=== PATIENT | female | born 1950 | race Two or more races ===

== ENCOUNTER 2017-04-21 08:45 | Day surgery (SDC) | payer MEDICARE ==
[2017-04-21] MEDS ORDERED: Lactated Ringer's 1,000 ML IV ONE (09:17)
[2017-04-21] MEDS ORDERED: Propofol 10 mg/ml Inj (20 ML) ONE (10:17)
[2017-04-21 10:44] VITALS: TEMP 97
[2017-04-21 11:10] VITALS: BP 128/53; PULSE 73; RESP 20; O2SAT 100
== END 2017-04-21 11:50 | disposition home or self-care (01) ==
LOC: H.ENDO 08:45
PROVIDERS: ATTEND Internal Medicine Gastroenterology
DX: Z12.11 Encounter for screening for malignant neoplasm of colon (principal); E11.9 Type 2 diabetes mellitus without complications; I10 Essential (primary) hypertension
CPT/HCPCS: 45378; 82948; J2704; J7120

== ENCOUNTER 2017-08-25 15:41 | Inpatient (IN) | payer MEDICARE ==
[2017-08-26 20:09] VITALS: BMI 22.6
--- NOTE | 2017-08-26 21:04 | CP.PCM.HP ---
History of Present Illness - History of Present Illness History of Present Illness: PMD: Nino Nieves MD Chief Complaint: Left side weakness The Patient was seen and examined in the rehab Unit HPI: The Hx was obtained from the patient, her daughter and after review of the medical records. The patient was transferred from [facility] to the [facility] for continued management and rehabilitation. She is a 66 years old female with hx of DM, HTN who was admitted to the [facility] on 08/18/17 with left side weakness and dysarthria , diagnosed with Acute CVA. While in hospital there she fell receiving trauma with swelling and bruise to the left periobital region. She was also diagnosed with UTI. At present her speech is clear, still with left side weakness including the face. No headaches, but slight dizziness is present. She passed the swallow evaluation. PMH: DM II; HTN; rectal bleed due to polyps 10years ago. diverticulosis PSH: Cesarian Section X3; Hysterectomy; Appendectomy; Cataract Surgery bilateral SH: Never smoked; No illegal drug use; No alcohol; retired; live with family FH: Father ; mother ; 1 son and 2 daughters healthy Allergies: NKDA Medications: Reviewed Present on Admission - Present on Admission Any Indicators Present on Admission: Yes History of DVT/PE: No History of Uncontrolled Diabetes: Yes Urinary Catheter: No Decubitus Ulcer Present: No Review of Systems - Constitutional Constitutional: absent: Chills, Fatigue, Fever, Headache - EENT Eyes: Requires Corrective Lenses. absent: Diplopia, Photophobia, Sees Flashes Ears: absent: Decreased Hearing, Tinnitus Nose/Mouth/Throat: absent: Epistaxis, Nasal Congestion, Nasal Discharge - Cardiovascular Cardiovascular: absent: Chest Pain, Dyspnea, Edema - Respiratory Respiratory: absent: Cough, Dyspnea, Wheezing, Stridor - Gastrointestinal Gastrointestinal: absent: Abdominal Pain, Constipation, Diarrhea, Nausea, Vomiting - Genitourinary Genitourinary: Urinary Frequency. absent: Dysuria, Flank Pain, Hematuria - Musculoskeletal Musculoskeletal: Arthralgias, Muscle Weakness - Integumentary Integumentary: Swelling. absent: Pruritus, Rash, Skin Ulcer, Sores, Striae - Neurological Neurological: Dizziness, Focal Weakness, Weakness. absent: Confusion, Headaches , Loss of Vision Additional comments: Left side weakness - Psychiatric Psychiatric: absent: Anxiety, Depression, Panic Attacks - Endocrine Endocrine: absent: Palpitations, Polydipsia, Polyphagia, Polyuria - Hematologic/Lymphatic Hematologic: absent: Easy Bleeding, Easy Bruising Past Patient History - Past Medical History & Family History Past Medical History?: Yes - Past Social History Smoking Status: Never Smoked Chewing Tobacco Use: No Cigar Use: No Alcohol: None Drugs: Denies Home Situation {Lives}: With Family - CARDIAC Hx Cardiac Disorders: Yes Hx Hypertension: Yes - PULMONARY Hx Respiratory Disorders: No - NEUROLOGICAL Hx Neurological Disorder: No - HEENT Hx HEENT Problems: No - RENAL Hx Chronic Kidney Disease: No - ENDOCRINE/METABOLIC Hx Endocrine Disorders: Yes Hx Diabetes Mellitus Type 2: Yes - HEMATOLOGICAL/ONCOLOGICAL Hx Blood Disorders: No - INTEGUMENTARY Hx Dermatological Problems: No - MUSCULOSKELETAL/RHEUMATOLOGICAL Hx Musculoskeletal Disorders: No - GASTROINTESTINAL Hx Gastrointestinal Disorders: No Other/Comment: Diverticulosis - GENITOURINARY/GYNECOLOGICAL Hx Genitourinary Disorders: No - PSYCHIATRIC Hx Psychophysiologic Disorder: No Hx Emotional Abuse: No Hx Physical Abuse: No - SURGICAL HISTORY Hx Surgeries: Yes Hx Appendectomy: Yes Hx Cataract Extraction: Yes Hx Section: Yes (X3) Hx Hysterectomy: Yes - ANESTHESIA Hx Anesthesia: Yes Hx Anesthesia Reactions: No Hx Malignant Hyperthermia: No Meds Allergies/Adverse Reactions: Allergies Allergy/AdvReac Type Severity Reaction Status Date / Time No Known Allergies Allergy Verified 08/26/17 20:09 Physical Exam - Constitutional Appears: No Acute Distress - Head Exam Head Exam: NORMOCEPHALIC Additional comments: Swelling at the left periorbital region. - Eye Exam Eye Exam: EOMI Pupil Exam: NORMAL ACCOMODATION, PERRL - ENT Exam ENT Exam: Mucous Membranes Moist, Normal Exam, Normal External Ear Exam - Neck Exam Neck exam: Positive for: Full Rom, Normal Inspection. Negative for: Tenderness - Respiratory Exam Respiratory Exam: Clear to Auscultation Bilateral. absent: Rales, Rhonchi, Wheezes - Cardiovascular Exam Cardiovascular Exam: REGULAR RHYTHM, RRR, +S1, +S2. absent: Gallop, JVD - GI/Abdominal Exam GI & Abdominal Exam: Normal Bowel Sounds, Soft. absent: Mass, Organomegaly, Tenderness - Rectal Exam Rectal Exam: Deferred - Extremities Exam Extremities exam: Positive for: normal inspection. Negative for: calf tenderness, pedal edema, tenderness Additional comments: No movement at the left upper upper extremity. The left knee moves slightly. - Back Exam Back exam: CVA tenderness (L). absent: CVA tenderness (R), NORMAL INSPECTION - Neurological Exam Additional comments: Awake, alert. oriented X3, left facial droop, tongue deviated to the left, left upper extremity with motor strength 0/5 at th eankle and 1/5 at th eleft kneeand left lower extremities with motor strength 0/5 - Psychiatric Exam Psychiatric exam: Normal Affect, Normal Mood - Skin Skin Exam: Dry, Intact, Normal Color, Warm Assessment & Plan - Assessment and Plan (Free Text) Assessment: #. Acute CVA #. DM II #. UTI #. HTN Plan: The patient was transferred from [facility] to the [facility] for continued management and rehabilitation. She is a 66 years old female with hx of DM, HTN who was admitted to the [facility] on 08/18/17 with left side weakness and dysarthria , diagnosed with Acute CVA. While in hospital there she fell receiving trauma with swelling and bruise to the left periobital region. She was also diagnosed with UTI. #. Acute CVA - consult Physiatry Dr Couch - SAGAR - Lipitor - OT/PT - Follow CBC and platelets #. DM II with Hyperglycemia - Lispro Insulin sliding scale according to accucheck ACHS - Levemir - HbA1C 7.7 on 08/18/17 at [facility] - Follow Electrolytes and renal labs #. UTI - Levaquin 500mg daily for 2 days more #. HTN - Losartan - Norvasc #. Left eye bruises - Antibiotic ointment( Neomycin/Polymyxin/dexamethasone) TID #. DVT Prophylaxis with Lovenox - Date & Time Date: 08/26/17 Time: 21:04
[2017-08-26] MEDS: Insulin Detemir 100 Units/ml Inj SC SCH (23:29)
[2017-08-26] MEDS: Insulin Lispro (humaLOG) 100 Units/ml Inj SC SCH (23:31)
[2017-08-27] MEDS: Insulin Lispro (humaLOG) 100 Units/ml Inj SC SCH ×4 (07:43→21:21)
[2017-08-27 07:50] LABS: BASO # 0.1 K/uL (0.0-0.2); BASO % 0.6 % (0.0-2.0); EOS # 0.6 K/uL (0.0-0.7); EOS % 6.4 % (0.0-4.0); HEMOGLOBIN 12.4 g/dL (12.0-16.0); LYMPH % 30.9 % (20.0-40.0); MEAN CELL VOLUME 80.4 fl (81.0-99.0); MEAN CORPUSCULAR HEMOGLOBIN 27.4 pg (27.0-31.0); MEAN CORPUSCULAR HGB CONC 34.1 g/dL (33.0-37.0); MEAN PLATELET VOLUME 7.4 fl (7.2-11.7); MONO # 1.3 K/uL (0.0-0.8); MONO % 13.9 % (0.0-10.0); NEUT # 4.6 K/uL (1.8-7.0); NEUT % 48.2 % (50.0-75.0); NRBC % 0.1 % (0.0-0.0); RBC 4.52 Mil/uL (3.80-5.20); RED CELL DISTRIBUTION WIDTH 12.5 % (11.5-14.5); WHITE BLOOD COUNT 9.6 K/uL (4.8-10.8)
[2017-08-27 08:10] LABS: ALB/GLOB RATIO 1.1 (1.0-2.1); ALT/SGPT 70 U/L (9-52); AST/SGOT 41 U/L (14-36); BLOOD UREA NITROGEN 16 mg/dl (7-17); CALCIUM 9.4 mg/dL (8.4-10.2); GFR AFRICAN-AMERICAN > 60; GFR NON-AFRICAN AMERICAN > 60
[2017-08-27] MEDS: levoFLOXacin 500 MG TAB PO SCH (08:13)
[2017-08-27 08:15] LABS: PARTIAL THROMBOPLASTIN TIME 31.6 Seconds (25.6-37.1); PROTHROMBIN TIME 11.5 Seconds (9.8-13.1)
[2017-08-27] MEDS: Enoxaparin 40 mg Syringe SC SCH (12:22)
--- NOTE | 2017-08-27 16:39 | CP.PCM.CON ---
History of Present Illness - History of Present Illness History of Present Illness: Dr Ocampo PMR coverage for Dr Couch on Maryann Kim, born 1950 who has been admitted to [facility] for acute inpatient rehabilitation following a right CVA wtih left HP. Review of Systems - Constitutional Constitutional: absent: Anorexia, Chills - EENT Eyes: absent: Blurred Vision Ears: absent: Decreased Hearing Nose/Mouth/Throat: absent: Nasal Congestion - Cardiovascular Cardiovascular: absent: Chest Pain - Respiratory Respiratory: absent: Dyspnea - Gastrointestinal Gastrointestinal: absent: Abdominal Pain, Constipation - Integumentary Integumentary: Swelling (left eye from injury). absent: Bleeding Lesions - Neurological Neurological: absent: Abnormal Movements - Psychiatric Psychiatric: absent: Anxiety Past Patient History - Past Medical History & Family History Past Medical History?: Yes - Past Social History Smoking Status: Never Smoked Alcohol: None Drugs: Denies Home Situation {Lives}: With Family (few steps) - CARDIAC Hx Cardiac Disorders: Yes Hx Hypertension: Yes - PULMONARY Hx Respiratory Disorders: No - NEUROLOGICAL Hx Neurological Disorder: No - HEENT Hx HEENT Problems: No - RENAL Hx Chronic Kidney Disease: No - ENDOCRINE/METABOLIC Hx Endocrine Disorders: Yes Hx Diabetes Mellitus Type 2: Yes - HEMATOLOGICAL/ONCOLOGICAL Hx Blood Disorders: No - INTEGUMENTARY Hx Dermatological Problems: No - MUSCULOSKELETAL/RHEUMATOLOGICAL Hx Falls: Yes - GASTROINTESTINAL Hx Gastrointestinal Disorders: No Other/Comment: Diverticulosis - GENITOURINARY/GYNECOLOGICAL Hx Genitourinary Disorders: No - PSYCHIATRIC Hx Substance Use: No - SURGICAL HISTORY Hx Surgeries: Yes Hx Appendectomy: Yes Hx Cataract Extraction: Yes Hx Section: Yes (X3) Hx Hysterectomy: Yes - ANESTHESIA Hx Anesthesia: Yes Hx Anesthesia Reactions: No Hx Malignant Hyperthermia: No Meds Allergies/Adverse Reactions: Allergies Allergy/AdvReac Type Severity Reaction Status Date / Time No Known Allergies Allergy Verified 08/26/17 20:09 - Medications Medications: Current Medications Amlodipine Besylate (Norvasc) 10 mg PO DAILY [facility] Last Admin: 08/27/17 08:12 Dose: 10 mg Aspirin (Ecotrin) 81 mg PO DAILY [facility] Last Admin: 08/27/17 08:13 Dose: 81 mg Atorvastatin Calcium (Lipitor) 80 mg PO HS [facility] Last Admin: 08/26/17 23:29 Dose: 80 mg Enoxaparin Sodium (Lovenox) 40 mg SC DAILY [facility] PRN Reason: Protocol Last Admin: 08/27/17 12:22 Dose: 40 mg Famotidine (Pepcid) 20 mg PO DAILY [facility] Insulin Detemir (Levemir) 8 units SC HS [facility] Last Admin: 08/26/17 23:29 Dose: 8 units Insulin Human Lispro (Humalog) 0 units SC ACHS [facility] PRN Reason: Protocol Last Admin: 08/27/17 12:19 Dose: 4 units Levofloxacin (Levaquin) 500 mg PO DAILY [facility] PRN Reason: Protocol Stop: 08/29/17 09:01 Last Admin: 08/27/17 08:13 Dose: 500 mg Losartan Potassium (Cozaar) 50 mg PO DAILY [facility] Last Admin: 08/27/17 08:14 Dose: 50 mg Neomycin/Polymyxin/Dexamethasone (Maxitrol Opth Oint) 1 applic OU TID [facility] Last Admin: 08/27/17 12:22 Dose: 1 applic Physical Exam - Head Exam Head Exam: absent: ATRAUMATIC (left brow injury with swelling and ecchymosis) - Respiratory Exam Respiratory Exam: NORMAL BREATHING PATTERN - Cardiovascular Exam Cardiovascular Exam: REGULAR RHYTHM - GI/Abdominal Exam GI & Abdominal Exam: absent: Distended - Extremities Exam Extremities exam: Negative for: calf tenderness - Neurological Exam Neurological exam: Alert, CN II-XII Intact, Oriented x3 - Psychiatric Exam Psychiatric exam: Normal Affect, Normal Mood Results - Vital Signs Recent Vital Signs: Last Vital Signs Temp 97.2 F L 08/27/17 08:59 Pulse 73 08/27/17 08:59 Resp 19 08/27/17 08:59 BP 143/60 08/27/17 08:59 Pulse Ox 95 08/27/17 08:59 - Labs Result Diagrams: 08/27/17 05:30 08/27/17 05:30 Labs: Laboratory Results - last 24 hr 08/26/17 08/27/17 08/27/17 22:23 05:29 05:30 WBC 9.6 RBC 4.52 Hgb 12.4 Hct 36.3 MCV 80.4 L MCH 27.4 MCHC 34.1 RDW 12.5 Plt Count 359 MPV 7.4 Neut % (Auto) 48.2 L Lymph % (Auto) 30.9 [facility] % (Auto) 13.9 H Eos % (Auto) 6.4 H Baso % (Auto) 0.6 Neut # (Auto) 4.6 Lymph # (Auto) 3.0 [facility] # (Auto) 1.3 H Eos # (Auto) 0.6 Baso # (Auto) 0.1 PT INR APTT Sodium Potassium Chloride Carbon Dioxide Anion Gap BUN Creatinine Est GFR ( Amer) Est GFR (Non-Af Amer) POC Glucose (mg/dL) 214 H 176 H Random Glucose Calcium Total Bilirubin AST ALT Alkaline Phosphatase Total Protein Albumin Globulin Albumin/Globulin Ratio 08/27/17 08/27/17 08/27/17 05:30 05:30 12:08 WBC RBC Hgb Hct MCV MCH MCHC RDW Plt Count MPV Neut % (Auto) Lymph % (Auto) [facility] % (Auto) Eos % (Auto) Baso % (Auto) Neut # (Auto) Lymph # (Auto) [facility] # (Auto) Eos # (Auto) Baso # (Auto) PT 11.5 INR 1.0 APTT 31.6 Sodium 141 Potassium 3.8 Chloride 99 Carbon Dioxide 28 Anion Gap 18 BUN 16 Creatinine 0.5 L Est GFR ( Amer) > 60 Est GFR (Non-Af Amer) > 60 POC Glucose (mg/dL) 253 H Random Glucose 209 H Calcium 9.4 Total Bilirubin 0.9 AST 41 H ALT 70 H Alkaline Phosphatase 88 Total Protein 7.6 Albumin 4.0 Globulin 3.6 Albumin/Globulin Ratio 1.1 Assessment & Plan - Assessment and Plan (Free Text) Assessment: 66 right HD dominant female with right CVA left HP MCA distribution with 2/5 proximal and trace wrist movement no finger movement at this time PT/OT to continue to help increase functional independence Team conference for d/c planning Pain: controlled Vascular: no evidence of DVT GI: No evidence of constipation or diarrhea Patient is an excellent acute rehabilitation candidate and will have focused PT , OT and recreational therapy to help facilitate a safe and appropriate d/c plan impairment code 01.1
--- NOTE | 2017-08-27 17:30 | PCM.OPOC ---
Physiatry Overall Plan of Care - Overall Plan of Care Estimated Length of Stay in Weeks: 3 Rehab Impairment: Mobility, Gait, Balance, Coordination Etiologic Diagnosis: Cerebrovascular Accident Rehab/Medical Prognosis: Fair - Anticipated Interventions Physical Therapy:: Yes Occupational Therapy:: Yes Speech Therapy:: No Recreational Therapy:: Yes - Therapy Goals Bed Mobility: Contact Guard Ambulation: Contact Guard Functional Positional Changes:: Contact Guard - Discharge Plan Discharge Destination: Subacute
[2017-08-27] MEDS: Insulin Detemir 100 Units/ml Inj SC SCH (21:20)
[2017-08-28] MEDS: Insulin Lispro (humaLOG) 100 Units/ml Inj SC SCH ×4 (06:55→21:09)
[2017-08-28] MEDS: Enoxaparin 40 mg Syringe SC SCH (08:17)
[2017-08-28] MEDS: levoFLOXacin 500 MG TAB PO SCH (08:17)
[2017-08-28] MEDS: Insulin Detemir 100 Units/ml Inj SC SCH (21:08)
[2017-08-29] MEDS: Insulin Lispro (humaLOG) 100 Units/ml Inj SC SCH ×4 (07:28→21:15)
[2017-08-29] MEDS: Enoxaparin 40 mg Syringe SC SCH (08:20)
[2017-08-29] MEDS: levoFLOXacin 500 MG TAB PO SCH (08:23)
--- NOTE | 2017-08-29 11:09 | CP.PCM.PN ---
Subjective - Date & Time of Evaluation Date of Evaluation: 08/29/17 Time of Evaluation: 11:15 - Subjective Subjective: Patient seen and examined. Claimed she is doing better with therapy. No complaint. Objective - Vital Signs/Intake and Output Vital Signs (last 24 hours): Temp Pulse Resp BP Pulse Ox 97.7 F 87 20 128/61 96 08/29/17 07:44 08/29/17 08:40 08/29/17 07:44 08/29/17 08:40 08/29/17 07:44 - Medications Medications: Current Medications Amlodipine Besylate (Norvasc) 10 mg PO DAILY [facility] Last Admin: 08/29/17 08:23 Dose: 10 mg Aspirin (Ecotrin) 81 mg PO DAILY [facility] Last Admin: 08/29/17 08:19 Dose: 81 mg Atorvastatin Calcium (Lipitor) 80 mg PO HS [facility] Last Admin: 08/28/17 21:08 Dose: 80 mg Enoxaparin Sodium (Lovenox) 40 mg SC DAILY [facility] PRN Reason: Protocol Last Admin: 08/29/17 08:20 Dose: 40 mg Famotidine (Pepcid) 20 mg PO DAILY [facility] Last Admin: 08/29/17 08:21 Dose: 20 mg Insulin Detemir (Levemir) 8 units SC HS [facility] Last Admin: 08/28/17 21:08 Dose: 8 units Insulin Human Lispro (Humalog) 0 units SC [facility] PRN Reason: Protocol Last Admin: 08/29/17 07:28 Dose: 3 units Losartan Potassium (Cozaar) 50 mg PO DAILY [facility] Last Admin: 08/29/17 08:21 Dose: 50 mg Neomycin/Polymyxin/Dexamethasone (Maxitrol Opth Oint) 1 applic OU TID [facility] Last Admin: 08/29/17 08:19 Dose: 1 applic - Labs Labs: 08/27/17 05:30 08/27/17 05:30 PT 11.5 Seconds (9.8-13.1) 08/27/17 05:30 INR 1.0 (0.9-1.2) 08/27/17 05:30 APTT 31.6 Seconds (25.6-37.1) 08/27/17 05:30 - Constitutional Appears: No Acute Distress - Eye Exam Eye Exam: PERRL. absent: Normal appearance (left supraorbital swelling 2x2x2 cm ) - ENT Exam ENT Exam: Mucous Membranes Moist - Neck Exam Neck Exam: absent: Meningismus - Respiratory Exam Respiratory Exam: absent: Rales, Rhonchi, Wheezes, Respiratory Distress - Cardiovascular Exam Cardiovascular Exam: REGULAR RHYTHM, +S1, +S2 - GI/Abdominal Exam GI & Abdominal Exam: Soft. absent: Tenderness - Rectal Exam Rectal Exam: Deferred - Neurological Exam Neurological Exam: Alert, Oriented x3 - Psychiatric Exam Psychiatric exam: Normal Affect - Skin Skin Exam: Dry, Intact Assessment and Plan - Assessment and Plan (Free Text) Assessment: 66 yo female with history of DM2 and HTN was [place] [facility] [place] because of left sided weakness and dysarthria associated with acute CVA. While in there patient fell in the bathroom sustaining left supraorbital contussion- hematoma. She was also found to have UTI. On 08/26/17 she was transferred to [facility] and admitted in Acute Rehab for further therapy. 1. Acute CVA continue PT/OT on ASA and statin physiatry consult with Dr Couch 2. DM2 BS uncontrolled HgA1C: 7.7 on 08/18/17 in [facility] accuchek ACHS with low Lispro coverage Levemir 8 units SC HS 3. UTI resolved 4. HTN BP stable continue Losartan and Norvasc 5. Contussion-Hematoma, Left Supraorbital swelling subsiding 6. DVT prophylaxis on Lovenox
--- NOTE | 2017-08-29 15:45 | CP.PCM.CON ---
History of Present Illness - History of Present Illness History of Present Illness: pt is 66ys old female no previous psychiatric diagnosis or treatment, The [place] [facility] [place] [facility] for continued management and rehabilitation. She zo hx of DM, HTN who was admitted to the [facility] on 08/18/17 with left side weakness and dysarthria , diagnosed with Acute CVA. pt noted by staff to present with depressed mood, edginess and irritability, on evaluation pt reported feeling sad and angry due to her current medical condition, denied changes in sleep or appetite denied feeling hopeless or helpless denied suicidal ideation denid perceptual disturbances Past Patient History - Past Medical History & Family History Past Medical History?: Yes - Past Social History Smoking Status: Never Smoked Alcohol: None Drugs: Denies Home Situation {Lives}: With Family (few steps) - CARDIAC Hx Hypertension: Yes - PULMONARY Hx Respiratory Disorders: No - NEUROLOGICAL Hx Neurological Disorder: No - HEENT Hx HEENT Problems: No - RENAL Hx Chronic Kidney Disease: No - ENDOCRINE/METABOLIC Hx Diabetes Mellitus Type 2: Yes - HEMATOLOGICAL/ONCOLOGICAL Hx Blood Disorders: No - INTEGUMENTARY Hx Dermatological Problems: No - MUSCULOSKELETAL/RHEUMATOLOGICAL Hx Falls: Yes - GASTROINTESTINAL Hx Gastrointestinal Disorders: No Other/Comment: Diverticulosis - GENITOURINARY/GYNECOLOGICAL Hx Genitourinary Disorders: No - PSYCHIATRIC Hx Substance Use: No - SURGICAL HISTORY Hx Surgeries: Yes Hx Appendectomy: Yes Hx Cataract Extraction: Yes Hx Section: Yes (X3) Hx Hysterectomy: Yes - ANESTHESIA Hx Anesthesia: Yes Hx Anesthesia Reactions: No Hx Malignant Hyperthermia: No Meds Allergies/Adverse Reactions: Allergies Allergy/AdvReac Type Severity Reaction Status Date / Time No Known Allergies Allergy Verified 08/26/17 20:09 - Medications Medications: Current Medications Amlodipine Besylate (Norvasc) 10 mg PO DAILY [facility] Last Admin: 08/29/17 08:23 Dose: 10 mg Aspirin (Ecotrin) 81 mg PO DAILY [facility] Last Admin: 08/29/17 08:19 Dose: 81 mg Atorvastatin Calcium (Lipitor) 80 mg PO HS [facility] Last Admin: 08/28/17 21:08 Dose: 80 mg Enoxaparin Sodium (Lovenox) 40 mg SC DAILY [facility] PRN Reason: Protocol Last Admin: 08/29/17 08:20 Dose: 40 mg Famotidine (Pepcid) 20 mg PO DAILY [facility] Last Admin: 08/29/17 08:21 Dose: 20 mg Insulin Detemir (Levemir) 8 units SC HS [facility] Last Admin: 08/28/17 21:08 Dose: 8 units Insulin Human Lispro (Humalog) 0 units SC ACHS [facility] PRN Reason: Protocol Last Admin: 08/29/17 12:13 Dose: 8 units Losartan Potassium (Cozaar) 50 mg PO DAILY [facility] Last Admin: 08/29/17 08:21 Dose: 50 mg Ondansetron HCl (Zofran Odt) 4 mg PO Q8H PRN PRN Reason: Nausea/Vomiting Physical Exam - Psychiatric Exam Additional comments: pt seen in bed, calm cooperstive good eye contact mood sad constricted affect, speech normal thought form coherent , alert awake oriented to person and place denied any current suicidal or homicidal ideation denied perceptual disturbances Results - Vital Signs Recent Vital Signs: Last Vital Signs Temp 97.7 F 08/29/17 07:44 Pulse 87 08/29/17 08:40 Resp 20 08/29/17 07:44 BP 128/61 08/29/17 08:40 Pulse Ox 96 08/29/17 07:44 - Labs Result Diagrams: 08/27/17 05:30 08/27/17 05:30 Labs: Laboratory Results - last 24 hr 08/28/17 08/28/17 08/29/17 16:08 20:27 06:32 POC Glucose (mg/dL) 206 H 276 H 246 H Assessment & Plan - Assessment and Plan (Free Text) 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
--- NOTE | 2017-08-29 19:11 | CP.PCM.PN ---
Subjective - Date & Time of Evaluation Date of Evaluation: 08/29/17 Time of Evaluation: 19:10 - Subjective Subjective: Patient seen in room present doing ok left eye ecchymosis and bump continue current care Objective - Vital Signs/Intake and Output Vital Signs (last 24 hours): Temp Pulse Resp BP Pulse Ox 97.7 F 87 20 128/61 96 08/29/17 07:44 08/29/17 08:40 08/29/17 07:44 08/29/17 08:40 08/29/17 07:44 - Medications Medications: Current Medications Amlodipine Besylate (Norvasc) 10 mg PO DAILY [facility] Last Admin: 08/29/17 08:23 Dose: 10 mg Aspirin (Ecotrin) 81 mg PO DAILY [facility] Last Admin: 08/29/17 08:19 Dose: 81 mg Atorvastatin Calcium (Lipitor) 80 mg PO HS [facility] Last Admin: 08/28/17 21:08 Dose: 80 mg Enoxaparin Sodium (Lovenox) 40 mg SC DAILY [facility] PRN Reason: Protocol Last Admin: 08/29/17 08:20 Dose: 40 mg Famotidine (Pepcid) 20 mg PO DAILY [facility] Last Admin: 08/29/17 08:21 Dose: 20 mg Insulin Detemir (Levemir) 8 units SC HS [facility] Last Admin: 08/28/17 21:08 Dose: 8 units Insulin Human Lispro (Humalog) 0 units SC [facility] PRN Reason: Protocol Last Admin: 08/29/17 17:14 Dose: 8 units Losartan Potassium (Cozaar) 50 mg PO DAILY [facility] Last Admin: 08/29/17 08:21 Dose: 50 mg Ondansetron HCl (Zofran Odt) 4 mg PO Q8H PRN PRN Reason: Nausea/Vomiting Sertraline HCl (Zoloft) 12.5 mg PO DAILY [facility] Trazodone HCl (Desyrel) 25 mg PO HS PRN PRN Reason: Insomnia - Labs Labs: 08/27/17 05:30 08/27/17 05:30 PT 11.5 Seconds (9.8-13.1) 08/27/17 05:30 INR 1.0 (0.9-1.2) 08/27/17 05:30 APTT 31.6 Seconds (25.6-37.1) 08/27/17 05:30
[2017-08-29] MEDS: Insulin Detemir 100 Units/ml Inj SC SCH (21:21)
[2017-08-30 06:31] LABS: HEMOGLOBIN 12.2 g/dL (12.0-16.0); MEAN CELL VOLUME 81.7 fl (81.0-99.0); RBC 4.54 Mil/uL (3.80-5.20); RED CELL DISTRIBUTION WIDTH 12.8 % (11.5-14.5); WHITE BLOOD COUNT 11.4 K/uL (4.8-10.8)
[2017-08-30] MEDS: Insulin Lispro (humaLOG) 100 Units/ml Inj SC SCH ×4 (07:03→22:06)
[2017-08-30 07:10] LABS: BLOOD UREA NITROGEN 24 mg/dl (7-17); CALCIUM 9.3 mg/dL (8.4-10.2); GFR AFRICAN-AMERICAN > 60; GFR NON-AFRICAN AMERICAN > 60
[2017-08-30] MEDS: Enoxaparin 40 mg Syringe SC SCH (09:47)
--- NOTE | 2017-08-30 13:18 | PSY.TMCNF ---
Nursing - Vital Signs Vital Signs (Last 8 hours): Vital Signs 08/30/17 08/30/17 08/30/17 07:45 08:53 09:46 Temperature 98.1 F Pulse Rate 75 76 94 H Respiratory 20 Rate Blood Pressure 129/61 129/61 O2 Sat by Pulse 94 L 96 Oximetry 08/30/17 09:47 Temperature Pulse Rate 94 H Respiratory Rate Blood Pressure 129/61 O2 Sat by Pulse Oximetry - Medications/Other Issues Comment: Pt is at moderate nutrition risk. Goals-. 1: Consume >75% of meals. 2: Maintain wt within 2-3 lbs. of current wt. Follow-up assessment due by 2017. - Bladder Management Bladder Pattern: Normal Voiding Method: Bedpan - Bowel Management Bowel Pattern: Normal - Patient/Family Teaching Comments: N/A - Goals/Time Frame Comments: Pt was seen resting throughout afternoon and attempted to meet with pt at bedside. Pt's Kellie was present in room and reported that pt did not sleep well at night and wanted to rest early. Pt did not open her eyes following command. Discussed with pt's about recreation therapy purpose and benefits. Pt's spouse reported that pt enjoys dancing and was driving [employer]. 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 Will attempt next session when pt is awake and alert to determine leisure interests and orient pt to recreation therapy. Physical Therapy - Bed Mobility Bed Mobility: Maximum Assistance - Transfers Wheelchair to Mat: Maximum Assistance Sit to Stand: Moderate Assistance - Ambulation Level of Assistance: Moderate Assistance, Maximum Assistance Distance (ft.): 25 Assistive Devices: Narrow base quad cane - Stair Negotiation Stairs: Level of Assistance: Not Tested - Standing Balance Static Stand: Minimal Assistance Dynamic Stand: Moderate Assistance - Pain Comment: L eye /headache - Insight/Carryover Insight/Carryover: Good - Patient/Family Education Comment: CVA recovery, safety - Assessment/Plan Assessment: Pt will be oriented to benefits and purpose of participating in recreation therapy sessions throughout stay on unit. Unable to meet with pt 2' fatigue and decrease arousal during attempted visits. Pt would benefit from recreation therapy to improve arousal level, mood state, and leisure awareness level. - Goals Timeframe: 3 weeks Goals: Sit < > supine mod I. SIt < > stand and bed < > chair transfers with supervision. Pt will ambulate 250 ft with [facility] and supervision. Pt will negotiate 1 flight of stairs with one handrail and CGA - Provider Therapist: ethan License Number: [id number] Occupational Therapy - Arousal/Attention/Orientation Patient Orientation: Person, Place, Time, Appropriate to Age, Appropriate to Situation - ADL/IADL Self Feeding: Set-up Help Grooming: Set-up Help Bathing-Upper Extremity: Moderate Assistance Bathing-Lower Extremity: Maximum Assistance Dressing-Upper Extremity: Moderate Assistance Dressing-Lower Extremity: Dependent - Transfers Wheelchair to Bed Transfers: Maximum Assistance Toilet Transfers: Maximum Assistance - Pain Comment: L eye /headache - Insight/Carryover Insight/Carryover: Good - Patient/Family Education Comment: CVA recovery, safety - Assessment/Plan Assessment: Pt will be oriented to benefits and purpose of participating in recreation therapy sessions throughout stay on unit. Unable to meet with pt 2' fatigue and decrease arousal during attempted visits. Pt would benefit from recreation therapy to improve arousal level, mood state, and leisure awareness level. - Goals Timeframe: 3 weeks Goals: Sit < > supine mod I. SIt < > stand and bed < > chair transfers with supervision. Pt will ambulate 250 ft with [facility] and supervision. Pt will negotiate 1 flight of stairs with one handrail and CGA - Provider Therapist: Marine Vega OTR/L Speech Therapy - Plan Assessment: Pt will be oriented to benefits and purpose of participating in recreation therapy sessions throughout stay on unit. Unable to meet with pt 2' fatigue and decrease arousal during attempted visits. Pt would benefit from recreation therapy to improve arousal level, mood state, and leisure awareness level. Recreational Therapy - Socialization Level of Socialization: Initiates/interacts freely with care givers and peer - Assessment Assessment/Plan: Pt will be oriented to benefits and purpose of participating in recreation therapy sessions throughout stay on unit. Unable to meet with pt 2 ' fatigue and decrease arousal during attempted visits. Pt would benefit from recreation therapy to improve arousal level, mood state, and leisure awareness level. Problems Currently Limiting Participation: decrease arousal, decrease mood state , fatigue, decrease leisure awareness level Goals and Time Frame: Pt will be encouraged to participate in 1:1 and group recreation therapy sessions 3-5x week to improve leisure awareness level, mood state, and arousal level. - Provider Therapist: Ene Oliveira, BUILDING RIGGER #[id number] Nutrition - Current Diet Current Diet/ Supplement/ Feedings: Heart healthy, moderate consistent CHO diet with thin liquids. - Appetite Percent Meal Consumed: 75-100% - Comments Comments: N/A - Assessment/Goals/Time Frame Assessment/Goals/Time Frame: Pt is at moderate nutrition risk. Goals-. 1: Consume >75% of meals. 2: Maintain wt within 2-3 lbs. of current wt. Follow- up assessment due by 09/04/2017. - Provider Provider: Yumi Patel MS, RD Case Management - Discharge Plan Discharge Plan: Subacute care Rehabilitation Plan - Treatment Plan Treatment Plan: Physical Therapy, Occupational Therapy, Dietary, Patient/Family Education - Discharge Plan Estimated Date of Discharge: 09/19/17 Discharge to: Subacute
--- NOTE | 2017-08-30 13:43 | CP.PCM.PN ---
Subjective - Date & Time of Evaluation Date of Evaluation: 08/30/17 Time of Evaluation: 13:42 - Subjective Subjective: Patient seen in the room with present denies sob/cp making slow progress will re-assess next week regarding d/c plans it is too soon Objective - Vital Signs/Intake and Output Vital Signs (last 24 hours): Temp Pulse Resp BP Pulse Ox 98.1 F 94 H 20 129/61 96 08/30/17 07:45 08/30/17 09:47 08/30/17 07:45 08/30/17 09:47 08/30/17 08:53 - Medications Medications: Current Medications Amlodipine Besylate (Norvasc) 10 mg PO DAILY [facility] Last Admin: 08/30/17 09:47 Dose: 10 mg Aspirin (Ecotrin) 81 mg PO DAILY [facility] Last Admin: 08/30/17 09:46 Dose: 81 mg Atorvastatin Calcium (Lipitor) 80 mg PO HS [facility] Last Admin: 08/29/17 21:11 Dose: 80 mg Enoxaparin Sodium (Lovenox) 40 mg SC DAILY [facility] PRN Reason: Protocol Last Admin: 08/30/17 09:47 Dose: 40 mg Famotidine (Pepcid) 20 mg PO DAILY [facility] Last Admin: 08/30/17 09:47 Dose: 20 mg Insulin Detemir (Levemir) 8 units SC HS [facility] Last Admin: 08/29/17 21:21 Dose: 8 units Insulin Human Lispro (Humalog) 0 units SC [facility] PRN Reason: Protocol Last Admin: 08/30/17 12:05 Dose: 6 units Losartan Potassium (Cozaar) 50 mg PO DAILY [facility] Last Admin: 08/30/17 09:46 Dose: 50 mg Ondansetron HCl (Zofran Odt) 4 mg PO Q8H PRN PRN Reason: Nausea/Vomiting Sertraline HCl (Zoloft) 12.5 mg PO DAILY [facility] Last Admin: 08/30/17 09:59 Dose: 12.5 mg Trazodone HCl (Desyrel) 25 mg PO HS PRN PRN Reason: Insomnia - Labs Labs: 08/30/17 06:10 08/30/17 06:10 PT 11.5 Seconds (9.8-13.1) 08/27/17 05:30 INR 1.0 (0.9-1.2) 08/27/17 05:30 APTT 31.6 Seconds (25.6-37.1) 08/27/17 05:30
[2017-08-30 17:44] LABS: SQUAMOUS EPITHIAL < 1 /hpf (0-5); URINE BACTERIA RARE (<OCC); URINE BILIRUBIN NEGATIVE (NEGATIVE); URINE BLOOD NEGATIVE (NEGATIVE); URINE CLARITY CLEAR (Clear); URINE COLOR STRAW (YELLOW); URINE GLUCOSE (UA) >=500 mg/dL (Normal); URINE LEUKOCYTE ESTERASE TRACE Leu/uL (Negative); URINE PROTEIN NEGATIVE (NEGATIVE); URINE UROBILINOGEN 0.2-1.0 mg/dL (0.2-1.0)
[2017-08-30] MEDS: Insulin Detemir 100 Units/ml Inj SC SCH (22:09)
[2017-08-31 06:16] LABS: HEMOGLOBIN 11.9 g/dL (12.0-16.0); MEAN CELL VOLUME 80.4 fl (81.0-99.0); MEAN CORPUSCULAR HEMOGLOBIN 27.7 pg (27.0-31.0); MEAN CORPUSCULAR HGB CONC 34.5 g/dL (33.0-37.0); RBC 4.31 Mil/uL (3.80-5.20); WHITE BLOOD COUNT 10.2 K/uL (4.8-10.8)
[2017-08-31] MEDS: Insulin Lispro (humaLOG) 100 Units/ml Inj SC SCH ×4 (06:56→21:00)
[2017-08-31 07:11] LABS: BLOOD UREA NITROGEN 19 mg/dl (7-17); CALCIUM 9.3 mg/dL (8.4-10.2); GFR AFRICAN-AMERICAN > 60; GFR NON-AFRICAN AMERICAN > 60
[2017-08-31] MEDS: Enoxaparin 40 mg Syringe SC SCH (08:47)
--- NOTE | 2017-08-31 14:09 | CP.PCM.PN ---
Subjective - Date & Time of Evaluation Date of Evaluation: 08/31/17 Time of Evaluation: 11:20 - Subjective Subjective: Patient seen and examined. Mild soreness on left supraorbital secondary to injury Objective - Vital Signs/Intake and Output Vital Signs (last 24 hours): Temp Pulse Resp BP Pulse Ox 97.8 F 80 18 129/58 L 98 08/31/17 09:41 08/31/17 09:41 08/31/17 09:41 08/31/17 09:41 08/31/17 09:41 - Medications Medications: Current Medications Amlodipine Besylate (Norvasc) 10 mg PO DAILY [facility] Last Admin: 08/31/17 08:48 Dose: 10 mg Aspirin (Ecotrin) 81 mg PO DAILY [facility] Last Admin: 08/31/17 08:46 Dose: 81 mg Atorvastatin Calcium (Lipitor) 80 mg PO HS [facility] Last Admin: 08/30/17 22:04 Dose: 80 mg Enoxaparin Sodium (Lovenox) 40 mg SC DAILY [facility] PRN Reason: Protocol Last Admin: 08/31/17 08:47 Dose: 40 mg Famotidine (Pepcid) 20 mg PO DAILY [facility] Last Admin: 08/31/17 08:46 Dose: 20 mg Insulin Detemir (Levemir) 8 units SC HS [facility] Last Admin: 08/30/17 22:09 Dose: 8 units Insulin Human Lispro (Humalog) 0 units SC [facility] PRN Reason: Protocol Last Admin: 08/31/17 12:26 Dose: 6 units Losartan Potassium (Cozaar) 50 mg PO DAILY [facility] Last Admin: 08/31/17 08:47 Dose: 50 mg Ondansetron HCl (Zofran Odt) 4 mg PO Q8H PRN PRN Reason: Nausea/Vomiting Sertraline HCl (Zoloft) 12.5 mg PO DAILY [facility] Last Admin: 08/31/17 08:48 Dose: 12.5 mg Trazodone HCl (Desyrel) 25 mg PO HS PRN PRN Reason: Insomnia - Labs Labs: 08/31/17 05:20 08/31/17 05:20 PT 11.5 Seconds (9.8-13.1) 08/27/17 05:30 INR 1.0 (0.9-1.2) 08/27/17 05:30 APTT 31.6 Seconds (25.6-37.1) 08/27/17 05:30 - Constitutional Appears: No Acute Distress - Head Exam Head Exam: absent: ATRAUMATIC (left supraorbital swelling still evident but patient claimed it does not bother her) - Eye Exam Eye Exam: PERRL. absent: Scleral icterus - ENT Exam ENT Exam: Mucous Membranes Moist - Neck Exam Neck Exam: absent: Meningismus - Respiratory Exam Respiratory Exam: absent: Rales, Rhonchi, Wheezes, Respiratory Distress - Cardiovascular Exam Cardiovascular Exam: REGULAR RHYTHM, +S1, +S2 - GI/Abdominal Exam GI & Abdominal Exam: Soft. absent: Tenderness - Rectal Exam Rectal Exam: Deferred - Back Exam Back Exam: NORMAL INSPECTION - Neurological Exam Neurological Exam: Alert, Oriented x3 - Psychiatric Exam Psychiatric exam: Normal Affect - Skin Skin Exam: Dry, Intact Assessment and Plan - Assessment and Plan (Free Text) Assessment: 66 yo female with history of DM2 and HTN was admitted to [facility] on 08/18/17 because of left sided weakness and dysarthria associated with acute CVA. While in there patient fell in the bathroom sustaining left supraorbital contussion- hematoma. She was also found to have UTI. On 08/26/17 she was transferred to [facility] and admitted in Acute Rehab for further therapy. 1. Acute CVA continue PT/OT on ASA and statin physiatry consult with Dr Couch 2. DM2 BS uncontrolled HgA1C: 7.7 on 08/18/17 in [facility] accuchek ACHS with low Lispro coverage Levemir 10 units SC HS 3. UTI resolved 4. HTN BP stable continue Losartan and Norvasc 5. Contussion-Hematoma, Left Supraorbital swelling subsiding but still big 6. DVT prophylaxis on Lovenox
[2017-08-31] MEDS: Insulin Detemir 100 Units/ml Inj SC SCH ×2 (14:15→21:55)
[2017-09-01] MEDS: Insulin Lispro (humaLOG) 100 Units/ml Inj SC SCH ×4 (07:20→21:15)
[2017-09-01] MEDS: Enoxaparin 40 mg Syringe SC SCH (09:02)
[2017-09-01] MEDS: Insulin Detemir 100 Units/ml Inj SC SCH (21:14)
[2017-09-02] MEDS: Insulin Lispro (humaLOG) 100 Units/ml Inj SC SCH ×4 (07:03→21:17)
--- NOTE | 2017-09-02 08:28 | CP.PCM.CON ---
History of Present Illness - History of Present Illness History of Present Illness: Pt is a 66 year old female admitted to [facility] following a CVA. Med hx positive for DM and HTN. See medical record for complete med history and medication list. Social History: pt lives in [place] with her of 40 + years and daughter. Pt has two other children, one in [place] and one in the [facility]. Pt reported positive relationships with family members, chidlren and grandchildren. Ed.Voc: pt raised in the [facility], college educated. 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 Psych history denied, pt denied a history of alc.sub abuse. Pt spoke of seeing a pscyhiatrist per consultation following the CVA. She spoke of dysphoria and increased optimism with gains made. MSE: pt alert, oriented relevant/coherent, no psychosis, affect constricted, mood dysphoric, no si no hi ideation. Dx: Adjustment Dx with Depresson- Strategies reviewed to decrease depression Plan: Continued Sup therapy 8-8:20 Past Patient History - Past Medical History & Family History Past Medical History?: Yes - Past Social History Smoking Status: Never Smoked Alcohol: None Drugs: Denies Home Situation {Lives}: With Family (few steps) - CARDIAC Hx Hypertension: Yes - PULMONARY Hx Respiratory Disorders: No - NEUROLOGICAL Hx Neurological Disorder: No - HEENT Hx HEENT Problems: No - RENAL Hx Chronic Kidney Disease: No - ENDOCRINE/METABOLIC Hx Diabetes Mellitus Type 2: Yes - HEMATOLOGICAL/ONCOLOGICAL Hx Blood Disorders: No - INTEGUMENTARY Hx Dermatological Problems: No - MUSCULOSKELETAL/RHEUMATOLOGICAL Hx Falls: Yes - GASTROINTESTINAL Hx Gastrointestinal Disorders: No Other/Comment: Diverticulosis - GENITOURINARY/GYNECOLOGICAL Hx Genitourinary Disorders: No - PSYCHIATRIC Hx Substance Use: No - SURGICAL HISTORY Hx Surgeries: Yes Hx Appendectomy: Yes Hx Cataract Extraction: Yes Hx Section: Yes (X3) Hx Hysterectomy: Yes - ANESTHESIA Hx Anesthesia: Yes Hx Anesthesia Reactions: No Hx Malignant Hyperthermia: No Meds Allergies/Adverse Reactions: Allergies Allergy/AdvReac Type Severity Reaction Status Date / Time No Known Allergies Allergy Verified 08/26/17 20:09 - Medications Medications: Current Medications Amlodipine Besylate (Norvasc) 10 mg PO DAILY [facility] Last Admin: 09/01/17 09:03 Dose: 10 mg Aspirin (Ecotrin) 81 mg PO DAILY [facility] Last Admin: 09/01/17 09:03 Dose: 81 mg Atorvastatin Calcium (Lipitor) 80 mg PO HS [facility] Last Admin: 09/01/17 21:14 Dose: 80 mg Enoxaparin Sodium (Lovenox) 40 mg SC DAILY [facility] PRN Reason: Protocol Last Admin: 09/01/17 09:02 Dose: 40 mg Famotidine (Pepcid) 20 mg PO DAILY [facility] Last Admin: 09/01/17 09:03 Dose: 20 mg Insulin Detemir (Levemir) 10 units SC HS [facility] Last Admin: 09/01/17 21:14 Dose: 10 units Insulin Human Lispro (Humalog) 0 units SC [facility] PRN Reason: Protocol Last Admin: 09/02/17 07:03 Dose: 3 units Losartan Potassium (Cozaar) 50 mg PO DAILY [facility] Last Admin: 09/01/17 09:04 Dose: 50 mg Ondansetron HCl (Zofran Odt) 4 mg PO Q8H PRN PRN Reason: Nausea/Vomiting Sertraline HCl (Zoloft) 12.5 mg PO DAILY [facility] Last Admin: 09/01/17 09:05 Dose: 12.5 mg Trazodone HCl (Desyrel) 25 mg PO HS PRN PRN Reason: Insomnia Results - Vital Signs Recent Vital Signs: Last Vital Signs Temp 98.8 F 09/01/17 20:05 Pulse 68 09/01/17 20:05 Resp 20 09/01/17 20:05 BP 128/53 L 09/01/17 20:05 Pulse Ox 96 09/01/17 20:05 - Labs Result Diagrams: 08/31/17 05:20 08/31/17 05:20 Labs: Laboratory Results - last 24 hr 09/01/17 09/01/17 09/01/17 11:48 16:32 20:53 POC Glucose (mg/dL) 223 H 236 H 233 H 09/02/17 06:20 POC Glucose (mg/dL) 223 H
[2017-09-02] MEDS: Enoxaparin 40 mg Syringe SC SCH (08:46)
--- NOTE | 2017-09-02 09:58 | CP.PCM.PN ---
Subjective - Date & Time of Evaluation Date of Evaluation: 09/02/17 Time of Evaluation: 09:57 - Subjective Subjective: pt doing well participating in pt no complaints denies cp/sob/pain hd stable nad Objective - Vital Signs/Intake and Output Vital Signs (last 24 hours): Temp Pulse Resp BP Pulse Ox 98.8 F 84 20 129/60 96 09/01/17 20:05 09/02/17 09:33 09/01/17 20:05 09/02/17 08:46 09/01/17 20:05 - Medications Medications: Current Medications Amlodipine Besylate (Norvasc) 10 mg PO DAILY [facility] Last Admin: 09/02/17 08:46 Dose: 10 mg Aspirin (Ecotrin) 81 mg PO DAILY [facility] Last Admin: 09/02/17 08:47 Dose: 81 mg Atorvastatin Calcium (Lipitor) 80 mg PO HS [facility] Last Admin: 09/01/17 21:14 Dose: 80 mg Enoxaparin Sodium (Lovenox) 40 mg SC DAILY [facility] PRN Reason: Protocol Last Admin: 09/02/17 08:46 Dose: 40 mg Famotidine (Pepcid) 20 mg PO DAILY [facility] Last Admin: 09/02/17 08:46 Dose: 20 mg Insulin Detemir (Levemir) 10 units SC HS [facility] Last Admin: 09/01/17 21:14 Dose: 10 units Insulin Human Lispro (Humalog) 0 units SC [facility] PRN Reason: Protocol Last Admin: 09/02/17 07:03 Dose: 3 units Losartan Potassium (Cozaar) 50 mg PO DAILY [facility] Last Admin: 09/02/17 08:45 Dose: 50 mg Ondansetron HCl (Zofran Odt) 4 mg PO Q8H PRN PRN Reason: Nausea/Vomiting Sertraline HCl (Zoloft) 12.5 mg PO DAILY [facility] Last Admin: 09/01/17 09:05 Dose: 12.5 mg Trazodone HCl (Desyrel) 25 mg PO HS PRN PRN Reason: Insomnia - Labs Labs: 08/31/17 05:20 08/31/17 05:20 PT 11.5 Seconds (9.8-13.1) 08/27/17 05:30 INR 1.0 (0.9-1.2) 08/27/17 05:30 APTT 31.6 Seconds (25.6-37.1) 08/27/17 05:30 - Constitutional Appears: Well, No Acute Distress - Head Exam Head Exam: ATRAUMATIC, NORMAL INSPECTION, NORMOCEPHALIC - Eye Exam Eye Exam: EOMI, Normal appearance, PERRL - ENT Exam ENT Exam: Mucous Membranes Moist, Normal Exam - Neck Exam Neck Exam: Normal Inspection. absent: Lymphadenopathy - Respiratory Exam Respiratory Exam: Clear to Ausculation Bilateral, NORMAL BREATHING PATTERN - Cardiovascular Exam Cardiovascular Exam: REGULAR RHYTHM, +S1, +S2. absent: Murmur - GI/Abdominal Exam GI & Abdominal Exam: Soft, Normal Bowel Sounds. absent: Tenderness, Organomegaly - Extremities Exam Extremities Exam: Normal Capillary Refill, Normal Inspection. absent: Joint Swelling, Pedal Edema - Back Exam Back Exam: absent: CVA tenderness (L), CVA tenderness (R) - Neurological Exam Neurological Exam: Alert, Awake - Psychiatric Exam Psychiatric exam: Normal Affect, Normal Mood - Skin Skin Exam: Dry, Warm Assessment and Plan - Assessment and Plan (Free Text) Plan: 66 yo female with history of DM2 and HTN was admitted to [facility] [place] [place] on 08/18/17 because of left sided weakness and dysarthria associated with acute CVA. While in there patient fell in the bathroom sustaining left supraorbital contussion- hematoma. She was also found to have UTI. On 08/26/17 she was transferred to [facility] and admitted in Acute Rehab for further therapy. 1. Acute CVA continue PT/OT on ASA and statin physiatry consult with Dr Couch 2. DM2 BS uncontrolled HgA1C: 7.7 on 08/18/17 in [facility] [place] [place] accuchek ACHS with low Lispro coverage Levemir 10 units SC HS 3. UTI resolved 4. HTN BP stable continue Losartan and Norvasc 5. Contussion-Hematoma, Left Supraorbital swelling subsiding but still big 6. DVT prophylaxis on Lovenox
--- NOTE | 2017-09-02 12:01 | CT ---
PROCEDURE: CT HEAD WITHOUT CONTRAST. HISTORY: persistent severe headache COMPARISON: None available. TECHNIQUE: Axial computed tomography images were obtained through the head/brain without intravenous contrast. Radiation dose: Total exam DLP = 751.3 mGy-cm. This CT exam was performed using one or more of the following dose reduction techniques: Automated exposure control, adjustment of the mA and/or kV according to patient size, and/or use of iterative reconstruction technique. FINDINGS: HEMORRHAGE: No intracranial hemorrhage. BRAIN: No mass effect or edema. Mild atrophy. Mild chronic microvascular ischemic changes. Bilateral basal ganglia lacunar infarctions. VENTRICLES: Unremarkable. No hydrocephalus. CALVARIUM: Unremarkable. PARANASAL SINUSES: Unremarkable as visualized. No significant inflammatory changes. MASTOID AIR CELLS: Unremarkable as visualized. No inflammatory changes. OTHER FINDINGS: Left supraorbital hematoma. IMPRESSION: Left supraorbital hematoma. No acute intracranial pathology or hemorrhage.
[2017-09-02] MEDS: Magnesium Oxide 400 mg Tab UD PO SCH ×2 (12:30→17:07)
--- NOTE | 2017-09-02 14:25 | CP.PCM.PN ---
Subjective - Date & Time of Evaluation Date of Evaluation: 09/02/17 Time of Evaluation: 14:24 - Subjective Subjective: Patient seen in the gym had some left sided leaning and CT done which reportedly did not show any acute abnormalities she is tired able to communicate and I do not see any cognitive change continue current care Objective - Vital Signs/Intake and Output Vital Signs (last 24 hours): Temp Pulse Resp BP Pulse Ox 98.8 F 84 20 129/60 96 09/01/17 20:05 09/02/17 09:33 09/01/17 20:05 09/02/17 08:46 09/01/17 20:05 - Medications Medications: Current Medications Amantadine HCl (Amantadine 100 Mg Cap) 100 mg PO DAILY [facility] Amlodipine Besylate (Norvasc) 10 mg PO DAILY [facility] Last Admin: 09/02/17 08:46 Dose: 10 mg Aspirin (Ecotrin) 81 mg PO DAILY [facility] Last Admin: 09/02/17 08:47 Dose: 81 mg Atorvastatin Calcium (Lipitor) 80 mg PO HS [facility] Last Admin: 09/01/17 21:14 Dose: 80 mg Enoxaparin Sodium (Lovenox) 40 mg SC DAILY [facility] PRN Reason: Protocol Last Admin: 09/02/17 08:46 Dose: 40 mg Famotidine (Pepcid) 20 mg PO DAILY [facility] Last Admin: 09/02/17 08:46 Dose: 20 mg Insulin Detemir (Levemir) 10 units SC HS [facility] Last Admin: 09/01/17 21:14 Dose: 10 units Insulin Human Lispro (Humalog) 0 units SC [facility] PRN Reason: Protocol Last Admin: 09/02/17 11:30 Dose: 8 units Losartan Potassium (Cozaar) 50 mg PO DAILY [facility] Last Admin: 09/02/17 08:45 Dose: 50 mg Magnesium Oxide (Mag-Ox) 400 mg PO BID [facility] Last Admin: 09/02/17 12:30 Dose: 400 mg Ondansetron HCl (Zofran Odt) 4 mg PO Q8H PRN PRN Reason: Nausea/Vomiting Sertraline HCl (Zoloft) 12.5 mg PO DAILY [facility] Last Admin: 09/02/17 10:00 Dose: 12.5 mg Trazodone HCl (Desyrel) 25 mg PO HS PRN PRN Reason: Insomnia - Labs Labs: 08/31/17 05:20 08/31/17 05:20 PT 11.5 Seconds (9.8-13.1) 08/27/17 05:30 INR 1.0 (0.9-1.2) 08/27/17 05:30 APTT 31.6 Seconds (25.6-37.1) 08/27/17 05:30
--- NOTE | 2017-09-02 18:10 | CP.PCM.CON ---
History of Present Illness - History of Present Illness History of Present Illness: Neurology Consultation Note: Mrs. Kim is a 66-year-old woman who is currently admitted to acute rehab [place] [facility] [place] after a right frontal/parietal lobe ischemic stroke. She is currently on Aspirin and Lipitor for secondary stroke prevention. She had fallen at [facility] and has a left supra-orbital hematoma. According to PT, the patient has been having increased leaning to the left since her admission. CT scan of the head did not show any acute findings. Neurology was consulted to assist with the management and care. Review of Systems - Review of Systems All systems: reviewed and no additional remarkable complaints except Past Patient History - Past Medical History & Family History Past Medical History?: Yes - Past Social History Smoking Status: Never Smoked Alcohol: None Drugs: Denies Home Situation {Lives}: With Family (few steps) - CARDIAC Hx Hypertension: Yes - PULMONARY Hx Respiratory Disorders: No - NEUROLOGICAL Hx Neurological Disorder: No - HEENT Hx HEENT Problems: No - RENAL Hx Chronic Kidney Disease: No - ENDOCRINE/METABOLIC Hx Diabetes Mellitus Type 2: Yes - HEMATOLOGICAL/ONCOLOGICAL Hx Blood Disorders: No - INTEGUMENTARY Hx Dermatological Problems: No - MUSCULOSKELETAL/RHEUMATOLOGICAL Hx Falls: Yes - GASTROINTESTINAL Hx Gastrointestinal Disorders: No Other/Comment: Diverticulosis - GENITOURINARY/GYNECOLOGICAL Hx Genitourinary Disorders: No - PSYCHIATRIC Hx Substance Use: No - SURGICAL HISTORY Hx Surgeries: Yes Hx Appendectomy: Yes Hx Cataract Extraction: Yes Hx Section: Yes (X3) Hx Hysterectomy: Yes - ANESTHESIA Hx Anesthesia: Yes Hx Anesthesia Reactions: No Hx Malignant Hyperthermia: No Meds Allergies/Adverse Reactions: Allergies Allergy/AdvReac Type Severity Reaction Status Date / Time No Known Allergies Allergy Verified 08/26/17 20:09 - Medications Medications: Current Medications Amantadine HCl (Amantadine 100 Mg Cap) 100 mg PO DAILY [facility] Last Admin: 09/02/17 12:00 Dose: 100 mg Amlodipine Besylate (Norvasc) 10 mg PO DAILY [facility] Last Admin: 09/02/17 08:46 Dose: 10 mg Aspirin (Ecotrin) 81 mg PO DAILY [facility] Last Admin: 09/02/17 08:47 Dose: 81 mg Atorvastatin Calcium (Lipitor) 80 mg PO HS [facility] Last Admin: 09/01/17 21:14 Dose: 80 mg Enoxaparin Sodium (Lovenox) 40 mg SC DAILY [facility] PRN Reason: Protocol Last Admin: 09/02/17 08:46 Dose: 40 mg Famotidine (Pepcid) 20 mg PO DAILY [facility] Last Admin: 09/02/17 08:46 Dose: 20 mg Insulin Detemir (Levemir) 10 units SC HS [facility] Last Admin: 09/01/17 21:14 Dose: 10 units Insulin Human Lispro (Humalog) 0 units SC ACHS [facility] PRN Reason: Protocol Last Admin: 09/02/17 17:06 Dose: 3 units Losartan Potassium (Cozaar) 50 mg PO DAILY [facility] Last Admin: 09/02/17 08:45 Dose: 50 mg Magnesium Oxide (Mag-Ox) 400 mg PO BID [facility] Last Admin: 09/02/17 17:07 Dose: 400 mg Ondansetron HCl (Zofran Odt) 4 mg PO Q8H PRN PRN Reason: Nausea/Vomiting Sertraline HCl (Zoloft) 12.5 mg PO DAILY [facility] Last Admin: 09/02/17 10:00 Dose: 12.5 mg Trazodone HCl (Desyrel) 25 mg PO HS PRN PRN Reason: Insomnia Physical Exam - Neurological Exam Neurological exam: Alert, CN II-XII Intact, Oriented x3 Additional comments: Left facial droop noted. Reflexes are brisk on the left with upgoing plantar response. Strength is 1/5 in LUE and 2/5 in LLE. She is able to more her hand toward her mouth on the left with support of the elbow. Right side is normal in strength. She has a mild neglect of the left side, but no significant sensory deficits were noted. NIHSS = 9 Results - Vital Signs Recent Vital Signs: Last Vital Signs Temp 98 F 09/02/17 08:00 Pulse 84 09/02/17 09:33 Resp 20 09/02/17 08:00 BP 129/60 09/02/17 08:46 Pulse Ox 98 09/02/17 08:00 - Labs Result Diagrams: 08/31/17 05:20 08/31/17 05:20 Labs: Laboratory Results - last 24 hr 09/01/17 09/02/17 09/02/17 20:53 06:20 12:43 POC Glucose (mg/dL) 233 H 223 H 346 H 09/02/17 16:26 POC Glucose (mg/dL) 233 H Assessment & Plan (1) Ischemic stroke Assessment and Plan: Will continue current management for secondary stroke prevention. Amantadine will be added to assist with functional outcome. If the patient has any chasity due to right frontal infarct, we may consider depakote. Otherwise, neurology will follow. Thank you. Status: Acute Priority: High
[2017-09-02] MEDS: Insulin Detemir 100 Units/ml Inj SC SCH (21:17)
[2017-09-03] MEDS: Insulin Lispro (humaLOG) 100 Units/ml Inj SC SCH ×4 (07:04→21:07)
[2017-09-03] MEDS: Enoxaparin 40 mg Syringe SC SCH (08:00)
[2017-09-03 08:01] LABS: HEMOGLOBIN 12.7 g/dL (12.0-16.0); MEAN CELL VOLUME 80.6 fl (81.0-99.0); MEAN CORPUSCULAR HEMOGLOBIN 28.2 pg (27.0-31.0); RBC 4.48 Mil/uL (3.80-5.20); RED CELL DISTRIBUTION WIDTH 13.1 % (11.5-14.5)
[2017-09-03] MEDS: Magnesium Oxide 400 mg Tab UD PO SCH ×2 (08:02→16:54)
[2017-09-03 08:25] LABS: BLOOD UREA NITROGEN 17 mg/dl (7-17); CALCIUM 9.7 mg/dL (8.4-10.2); GFR AFRICAN-AMERICAN > 60; GFR NON-AFRICAN AMERICAN > 60
[2017-09-03] MEDS: Insulin Detemir 100 Units/ml Inj SC SCH (21:18)
[2017-09-04] MEDS: Insulin Lispro (humaLOG) 100 Units/ml Inj SC SCH ×4 (06:54→21:25)
[2017-09-04] MEDS: Magnesium Oxide 400 mg Tab UD PO SCH ×2 (08:47→16:12)
[2017-09-04] MEDS: Enoxaparin 40 mg Syringe SC SCH (09:03)
[2017-09-04] MEDS: Insulin Detemir 100 Units/ml Inj SC SCH (21:30)
[2017-09-05] MEDS: Insulin Lispro (humaLOG) 100 Units/ml Inj SC SCH ×4 (06:59→21:24)
[2017-09-05] MEDS: Enoxaparin 40 mg Syringe SC SCH (09:02)
[2017-09-05] MEDS: Magnesium Oxide 400 mg Tab UD PO SCH ×2 (09:03→16:36)
--- NOTE | 2017-09-05 10:36 | CP.PCM.PN ---
Subjective - Date & Time of Evaluation Date of Evaluation: 09/05/17 Time of Evaluation: 10:33 - Subjective Subjective: Ms. Kim was seen and examined at the bedside. She is alert, oriented in all spheres. She complains of dull frontal headache where the hematoma is located. She denies any blurred vision, dizziness, lightheadedness. She is able to follow simple commands with the left side weaker than the right. There was no untoward events overnight. Objective - Vital Signs/Intake and Output Vital Signs (last 24 hours): Temp Pulse Resp BP Pulse Ox 97.7 F 71 20 129/60 97 09/04/17 19:55 09/05/17 09:03 09/04/17 19:55 09/05/17 09:03 09/04/17 19:55 - Medications Medications: Current Medications Amantadine HCl (Amantadine 100 Mg Cap) 100 mg PO DAILY [facility] Last Admin: 09/05/17 09:02 Dose: 100 mg Amlodipine Besylate (Norvasc) 10 mg PO DAILY [facility] Last Admin: 09/05/17 09:03 Dose: 10 mg Aspirin (Ecotrin) 81 mg PO DAILY [facility] Last Admin: 09/05/17 09:02 Dose: 81 mg Atorvastatin Calcium (Lipitor) 80 mg PO HS [facility] Last Admin: 09/04/17 21:29 Dose: 80 mg Enoxaparin Sodium (Lovenox) 40 mg SC DAILY [facility] PRN Reason: Protocol Last Admin: 09/05/17 09:02 Dose: 40 mg Famotidine (Pepcid) 20 mg PO DAILY [facility] Last Admin: 09/05/17 09:04 Dose: 20 mg Insulin Detemir (Levemir) 10 units SC [facility] Last Admin: 09/04/17 21:30 Dose: 10 units Insulin Human Lispro (Humalog) 0 units SC [facility] PRN Reason: Protocol Last Admin: 09/05/17 06:59 Dose: 3 units Losartan Potassium (Cozaar) 50 mg PO DAILY [facility] Last Admin: 09/05/17 09:02 Dose: 50 mg Magnesium Oxide (Mag-Ox) 400 mg PO BID [facility] Last Admin: 09/05/17 09:03 Dose: 400 mg Ondansetron HCl (Zofran Odt) 4 mg PO Q8H PRN PRN Reason: Nausea/Vomiting Sertraline HCl (Zoloft) 12.5 mg PO DAILY [facility] Last Admin: 09/05/17 09:04 Dose: 12.5 mg Trazodone HCl (Desyrel) 25 mg PO HS PRN PRN Reason: Insomnia - Labs Labs: 09/03/17 06:40 09/03/17 06:40 PT 11.5 Seconds (9.8-13.1) 08/27/17 05:30 INR 1.0 (0.9-1.2) 08/27/17 05:30 APTT 31.6 Seconds (25.6-37.1) 08/27/17 05:30 - Constitutional Appears: No Acute Distress - Head Exam Head Exam: NORMAL INSPECTION - Eye Exam Pupil Exam: PERRL - Neurological Exam Neurological Exam: Alert, Awake, Oriented x3 Neuro motor strength exam: Left Upper Extremity: 2/1, Right Upper Extremity: 5, Left Lower Extremity: 3, Right Lower Extremity: 5 Additional comments: alert, oriented, follows simple commands. Assessment and Plan (1) Ischemic stroke Assessment & Plan: Case discussed with Dr. Lenz, continue all current medical, physical, occupational, and speech therapies. Recommend hydration, keeping the head of bed elevated at least 30 degrees while in the bed. Status: Acute
--- NOTE | 2017-09-05 11:32 | CP.PCM.PN ---
Subjective - Date & Time of Evaluation Date of Evaluation: 09/05/17 Time of Evaluation: 10:15 - Subjective Subjective: Patient seen and examined. Still complained of soreness on the left supraorbital swelling. Objective - Vital Signs/Intake and Output Vital Signs (last 24 hours): Temp Pulse Resp BP Pulse Ox 97.9 F 71 18 129/60 96 09/05/17 10:00 09/05/17 10:00 09/05/17 10:00 09/05/17 10:00 09/05/17 10:00 - Medications Medications: Current Medications Amantadine HCl (Amantadine 100 Mg Cap) 100 mg PO DAILY [facility] Last Admin: 09/05/17 09:02 Dose: 100 mg Amlodipine Besylate (Norvasc) 10 mg PO DAILY [facility] Last Admin: 09/05/17 09:03 Dose: 10 mg Aspirin (Ecotrin) 81 mg PO DAILY [facility] Last Admin: 09/05/17 09:02 Dose: 81 mg Atorvastatin Calcium (Lipitor) 80 mg PO HS [facility] Last Admin: 09/04/17 21:29 Dose: 80 mg Enoxaparin Sodium (Lovenox) 40 mg SC DAILY [facility] PRN Reason: Protocol Last Admin: 09/05/17 09:02 Dose: 40 mg Famotidine (Pepcid) 20 mg PO DAILY [facility] Last Admin: 09/05/17 09:04 Dose: 20 mg Insulin Detemir (Levemir) 10 units SC HS [facility] Last Admin: 09/04/17 21:30 Dose: 10 units Insulin Human Lispro (Humalog) [address] [facility] PRN Reason: Protocol Last Admin: 09/05/17 06:59 Dose: 3 units Losartan Potassium (Cozaar) 50 mg PO DAILY [facility] Last Admin: 09/05/17 09:02 Dose: 50 mg Magnesium Oxide (Mag-Ox) 400 mg PO BID [facility] Last Admin: 09/05/17 09:03 Dose: 400 mg Ondansetron HCl (Zofran Odt) 4 mg PO Q8H PRN PRN Reason: Nausea/Vomiting Sertraline HCl (Zoloft) 12.5 mg PO DAILY [facility] Last Admin: 09/05/17 09:04 Dose: 12.5 mg Trazodone HCl (Desyrel) 25 mg PO HS PRN PRN Reason: Insomnia - Labs Labs: 09/03/17 06:40 07/07/18 06:40 PT 11.5 Seconds (9.8-13.1) 08/27/17 05:30 INR 1.0 (0.9-1.2) 08/27/17 05:30 APTT 31.6 Seconds (25.6-37.1) 08/27/17 05:30 - Constitutional Appears: No Acute Distress - Head Exam Head Exam: absent: ATRAUMATIC (contussion-hematoma on left supraorbital still markedly swollen) - Eye Exam Eye Exam: PERRL - ENT Exam ENT Exam: Mucous Membranes Moist - Neck Exam Neck Exam: absent: Meningismus - Respiratory Exam Respiratory Exam: absent: Rales, Rhonchi, Wheezes, Respiratory Distress - Cardiovascular Exam Cardiovascular Exam: REGULAR RHYTHM, +S1, +S2 - GI/Abdominal Exam GI & Abdominal Exam: Soft. absent: Tenderness - Rectal Exam Rectal Exam: Deferred - Neurological Exam Neurological Exam: Alert, Oriented x3 - Psychiatric Exam Psychiatric exam: Normal Affect - Skin Skin Exam: Dry, Intact Assessment and Plan - Assessment and Plan (Free Text) Assessment: 66 yo female with history of DM2 and HTN was admitted to [facility] on 08/18/17 because of left sided weakness and dysarthria associated with acute CVA. While in there patient fell in the bathroom sustaining left supraorbital contussion- hematoma. She was also found to have UTI. On 08/26/17 she was transferred to [facility] and admitted in Acute Rehab for further therapy. 1. Acute CVA continue PT/OT on ASA and statin physiatry consult with Dr Couch 2. DM2 BS still uncontrolled HgA1C: 7.7 on 08/18/17 in [facility] [place] accuchek ACHS with low Lispro coverage increase Levemir 12 units SC HS 3. HTN BP stable continue Losartan and Norvasc 4. Contussion-Hematoma, Left Supraorbital swelling still big 5. DVT prophylaxis on Lovenox
--- NOTE | 2017-09-05 16:36 | CP.PCM.PN ---
Subjective - Date & Time of Evaluation Date of Evaluation: 09/05/17 Time of Evaluation: 16:35 - Subjective Subjective: Patient seen in the room with present doing ok ambulating 60' with mod a no dizziness or cp no sob continue current care Objective - Vital Signs/Intake and Output Vital Signs (last 24 hours): Temp Pulse Resp BP Pulse Ox 97.9 F 68 18 131/58 L 96 09/05/17 10:00 09/05/17 15:31 09/05/17 10:30 09/05/17 15:31 09/05/17 10:30 - Medications Medications: Current Medications Amantadine HCl (Amantadine 100 Mg Cap) 100 mg PO DAILY [facility] Last Admin: 09/05/17 09:02 Dose: 100 mg Amlodipine Besylate (Norvasc) 10 mg PO DAILY [facility] Last Admin: 09/05/17 09:03 Dose: 10 mg Aspirin (Ecotrin) 81 mg PO DAILY [facility] Last Admin: 09/05/17 09:02 Dose: 81 mg Atorvastatin Calcium (Lipitor) 80 mg PO HS [facility] Last Admin: 09/04/17 21:29 Dose: 80 mg Enoxaparin Sodium (Lovenox) 40 mg SC DAILY [facility] PRN Reason: Protocol Last Admin: 09/05/17 09:02 Dose: 40 mg Famotidine (Pepcid) 20 mg PO DAILY [facility] Last Admin: 09/05/17 09:04 Dose: 20 mg Insulin Detemir (Levemir) 12 units SC HS [facility] Insulin Human Lispro (Humalog) 0 units SC [facility] PRN Reason: Protocol Last Admin: 09/05/17 16:34 Dose: 3 units Losartan Potassium (Cozaar) 50 mg PO DAILY [facility] Last Admin: 09/05/17 09:02 Dose: 50 mg Magnesium Oxide (Mag-Ox) 400 mg PO BID [facility] Last Admin: 09/05/17 09:03 Dose: 400 mg Ondansetron HCl (Zofran Odt) 4 mg PO Q8H PRN PRN Reason: Nausea/Vomiting Sertraline HCl (Zoloft) 12.5 mg PO DAILY [facility] Last Admin: 09/05/17 09:04 Dose: 12.5 mg Trazodone HCl (Desyrel) 25 mg PO HS PRN PRN Reason: Insomnia - Labs Labs: 09/03/17 06:40 09/03/17 06:40 PT 11.5 Seconds (9.8-13.1) 08/27/17 05:30 INR 1.0 (0.9-1.2) 08/27/17 05:30 APTT 31.6 Seconds (25.6-37.1) 08/27/17 05:30
[2017-09-05] MEDS: Insulin Detemir 100 Units/ml Inj SC SCH (21:24)
[2017-09-06 07:06] LABS: HEMOGLOBIN 12.4 g/dL (12.0-16.0); MEAN CORPUSCULAR HEMOGLOBIN 27.5 pg (27.0-31.0); MEAN CORPUSCULAR HGB CONC 33.9 g/dL (33.0-37.0); RBC 4.53 Mil/uL (3.80-5.20); RED CELL DISTRIBUTION WIDTH 13.4 % (11.5-14.5)
[2017-09-06 07:12] LABS: BLOOD UREA NITROGEN 15 mg/dl (7-17); CALCIUM 9.5 mg/dL (8.4-10.2); GFR AFRICAN-AMERICAN > 60; GFR NON-AFRICAN AMERICAN > 60
[2017-09-06] MEDS: Insulin Lispro (humaLOG) 100 Units/ml Inj SC SCH ×5 (07:13→21:13)
[2017-09-06] MEDS: Enoxaparin 40 mg Syringe SC SCH (08:39)
[2017-09-06] MEDS: Magnesium Oxide 400 mg Tab UD PO SCH ×2 (08:40→17:00)
--- NOTE | 2017-09-06 13:24 | PSY.TMCNF ---
Nursing - Vital Signs Vital Signs (Last 8 hours): Vital Signs 09/06/17 09/06/17 09/06/17 07:40 08:40 08:41 Temperature 97.7 F Pulse Rate 77 77 77 Respiratory 20 Rate Blood Pressure 127/54 L 127/54 L 127/54 L O2 Sat by Pulse 96 Oximetry Pain: 0 - Medications/Other Issues Comment: Pt at moderate nutritional risk. goals: 1: Consume >75% of meals- met , continue. 2: Maintain wt within 2-3 lbs. of current wt- unknown if met, continue. Follow-up due on 09/09/2017 - Bladder Management Bladder Pattern: Normal Voiding Method: Toilet, Bedpan - Bowel Management Bowel Pattern: Normal - Patient/Family Teaching Comments: N/A - Goals/Time Frame Comments: Pt was seen resting throughout afternoon and attempted to meet with pt at bedside. Pt's Kellie was present in room and reported that pt did not sleep well at night and wanted to rest early. Pt did not open her eyes following command. Discussed with pt's about recreation therapy purpose and benefits. Pt's spouse reported that pt enjoys dancing and was driving [employer]. 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 Will attempt next session when pt is awake and alert to determine leisure interests and orient pt to recreation therapy. Physical Therapy - Bed Mobility Bed Mobility: Moderate Assistance - Transfers Wheelchair to Mat: Moderate Assistance Sit to Stand: Minimal Assistance - Ambulation Level of Assistance: Moderate Assistance, Maximum Assistance Distance (ft.): 60 Assistive Devices: Narrow base quad cane Orthoses: LLE BILL wrap for dorsiflexor assist - Stair Negotiation Stairs: Level of Assistance: Not Tested - Standing Balance Static Stand: Moderate Assistance Dynamic Stand: Maximal Assistance - Pain Pain (assessed during therapy session): 0 - Insight/Carryover Insight/Carryover: Fair - Patient/Family Education Comment: CVA recovery, safety, improved insight to deficits - Assessment/Plan Assessment: Pt participating in PT tx sessions focusing on BLE strengthening exercises, balance and endurance activities, and functional mobility training. Pt currently requires mod A for bed mobility, min/ mod A for transfers, and max A for gait with NBQC . Pt appears to lack insight to derficits and is easily distracted /displays imapired carryover during sessions. Therapist provides education throughout session. Pt will continue to benefit from skilled PT interventions to addres deficits, reduce fall risk, and maximize functional independence. - Goals Timeframe: 3 weeks Goals: Sit < > supine with supervision. ALl functional transfers with Supervision. Pt will ambulate 150 ft with NBQC and CGA - Provider Therapist: Althea Mccoy PT DPT License Number: [id number] Occupational Therapy - Arousal/Attention/Orientation Patient Orientation: Person, Place, Time, Appropriate to Age, Appropriate to Situation - ADL/IADL Self Feeding: Set-up Help Grooming: Set-up Help, Minimal Assistance Bathing-Upper Extremity: Verbal Cues, Set-up Help, Moderate Assistance Bathing-Lower Extremity: Verbal Cues, Set-up Help, Maximum Assistance Dressing-Upper Extremity: Verbal Cues, Set-up Help, Moderate Assistance Dressing-Lower Extremity: Verbal Cues, Set-up Help, Maximum Assistance - Sitting Balance Static Sitting: Supervision Dynamic Sitting: Minimal Assistance Comment: seated at edge of bed - Transfers Wheelchair to Bed Transfers: Verbal Cues, Set-up Help, Moderate Assistance Toilet Transfers: Verbal Cues, Set-up Help, Minimal Assistance, Moderate Assistance - Wheelchair Management Level of Assistance: Dependent - Upper Extremity Status Right Upper Extremity Comment: P/AROM is WFLS, strength 4/5 Left Upper Extremity Comment: PROM Is WFLS, but AROM limited with abnormal tone ; strength 2-/5 - Pain Pain (assessed during therapy session): 0 - Insight/Carryover Insight/Carryover: Fair - Patient/Family Education Comment: CVA recovery, safety, improved insight to deficits - Assessment/Plan Assessment: Pt participating in PT tx sessions focusing on BLE strengthening exercises, balance and endurance activities, and functional mobility training. Pt currently requires mod A for bed mobility, min/ mod A for transfers, and max A for gait with NBQC . Pt appears to lack insight to derficits and is easily distracted /displays imapired carryover during sessions. Therapist provides education throughout session. Pt will continue to benefit from skilled PT interventions to addres deficits, reduce fall risk, and maximize functional independence. - Goals Timeframe: 3 weeks Goals: Sit < > supine with supervision. ALl functional transfers with Supervision. Pt will ambulate 150 ft with NBQC and CGA - Provider Therapist: Ny Null, OTR/L Speech Therapy - Plan Assessment: Pt participating in PT tx sessions focusing on BLE strengthening exercises, balance and endurance activities, and functional mobility training. Pt currently requires mod A for bed mobility, min/ mod A for transfers, and max A for gait with NBQC . Pt appears to lack insight to derficits and is easily distracted /displays imapired carryover during sessions. Therapist provides education throughout session. Pt will continue to benefit from skilled PT interventions to addres deficits, reduce fall risk, and maximize functional independence. Recreational Therapy - Participation Participation: Participates in Individual and/or Group Sessions - Attendance Attendance: 3-5 times per week - Activities Leisure Activities: Cards and Games - Socialization Level of Socialization: Initiates/interacts freely with care givers and peer - Assessment Assessment/Plan: Pt participating in PT tx sessions focusing on BLE strengthening exercises, balance and endurance activities, and functional mobility training. Pt currently requires mod A for bed mobility, min/ mod A for transfers, and max A for gait with NBQC . Pt appears to lack insight to derficits and is easily distracted /displays imapired carryover during sessions. Therapist provides education throughout session. Pt will continue to benefit from skilled PT interventions to addres deficits, reduce fall risk, and maximize functional independence. - Provider Therapist: Ene Oliveira, [employer]ICE [employer]ER #[id number] Nutrition - Current Diet Current Diet/ Supplement/ Feedings: Moderate consistent CHO heart healthy diet thin liquids - Appetite Percent Meal Consumed: 50-74% - Comments Comments: N/A - Assessment/Goals/Time Frame Assessment/Goals/Time Frame: Pt at moderate nutritional risk. goals: 1: Consume >75% of meals- met, continue. 2: Maintain wt within 2-3 lbs. of current wt- unknown if met, continue. Follow-up due on 09/09/2017 - Provider Provider: Yari Goodman RD Case Management - Psychosocial Assessment Support Systems: Adams Kim (spouse)- [phone] Psychological Interventions/Needs: Patient is alert and oriented x3 and able to verbalize needs. Patient cooperative and motivated for therapy Discharge Concerns: Patient currently requiring mod-max A for functional mobility Patient/Family Meeting: CM met with patient/spouse and rehab team Intervention/Goal/Outcome:: 1. Plan: Home vs [facility] dependent on progress in therapy over upcoming weeks. 2. Tentative discharge date: 09/19/2017. 3. continued stay auth, LAD: 7/5. 4. caregiver training? 5. DME needs? 6. patient to be reassesed next week for most appropriate discharge plan. - Discharge Plan Discharge Plan: Home with services, Subacute care - Provider Provider: RUPA Durbin, [employer] License Number: [id number] Rehabilitation Plan - Treatment Plan Treatment Plan: Physical Therapy, Occupational Therapy, Dietary, Patient/Family Education - Discharge Plan Discharge to: Home
--- NOTE | 2017-09-06 13:44 | CP.PCM.PN ---
Subjective - Date & Time of Evaluation Date of Evaluation: 09/06/17 Time of Evaluation: 13:43 - Subjective Subjective: Patient seen in the room doing ok lacks focus at times and discussed this with her family present as well goal is d/c home with 24 hour care 09/19/17 Objective - Vital Signs/Intake and Output Vital Signs (last 24 hours): Temp Pulse Resp BP Pulse Ox 97.7 F 77 20 127/54 L 96 09/06/17 07:40 09/06/17 08:41 09/06/17 07:40 09/06/17 08:41 09/06/17 07:40 - Medications Medications: Current Medications Amantadine HCl (Amantadine 100 Mg Cap) 100 mg PO DAILY [facility] Last Admin: 09/06/17 08:39 Dose: 100 mg Amlodipine Besylate (Norvasc) 10 mg PO DAILY [facility] Last Admin: 09/06/17 08:41 Dose: 10 mg Aspirin (Ecotrin) 81 mg PO DAILY [facility] Last Admin: 09/06/17 08:40 Dose: 81 mg Atorvastatin Calcium (Lipitor) 80 mg PO HS [facility] Last Admin: 09/05/17 21:23 Dose: 80 mg Enoxaparin Sodium (Lovenox) 40 mg SC DAILY [facility] PRN Reason: Protocol Last Admin: 09/06/17 08:39 Dose: 40 mg Famotidine (Pepcid) 20 mg PO DAILY [facility] Last Admin: 09/06/17 08:41 Dose: 20 mg Insulin Detemir (Levemir) 12 units SC HS [facility] Last Admin: 09/05/17 21:24 Dose: 12 units Insulin Human Lispro (Humalog) 0 units SC [facility] PRN Reason: Protocol Last Admin: 09/06/17 12:28 Dose: 3 units Losartan Potassium (Cozaar) 50 mg PO DAILY [facility] Last Admin: 09/06/17 08:40 Dose: 50 mg Magnesium Oxide (Mag-Ox) 400 mg PO BID [facility] Last Admin: 09/06/17 08:40 Dose: 400 mg Ondansetron HCl (Zofran Odt) 4 mg PO Q8H PRN PRN Reason: Nausea/Vomiting Sertraline HCl (Zoloft) 12.5 mg PO DAILY [facility] Last Admin: 09/06/17 08:41 Dose: 12.5 mg Trazodone HCl (Desyrel) 25 mg PO HS PRN PRN Reason: Insomnia - Labs Labs: 09/06/17 06:40 09/06/17 06:40 PT 11.5 Seconds (9.8-13.1) 08/27/17 05:30 INR 1.0 (0.9-1.2) 08/27/17 05:30 APTT 31.6 Seconds (25.6-37.1) 08/27/17 05:30
[2017-09-06] MEDS: Insulin Detemir 100 Units/ml Inj SC SCH (21:11)
[2017-09-07] MEDS: Insulin Lispro (humaLOG) 100 Units/ml Inj SC SCH ×4 (07:20→21:05)
[2017-09-07] MEDS: Magnesium Oxide 400 mg Tab UD PO SCH ×2 (08:31→17:01)
[2017-09-07] MEDS: Enoxaparin 40 mg Syringe SC SCH (08:32)
[2017-09-07] MEDS ORDERED: Insulin Detemir 100 Units/ml Inj SC SCH (15:15)
--- NOTE | 2017-09-07 15:22 | CP.PCM.PN ---
Subjective - Date & Time of Evaluation Date of Evaluation: 09/07/17 Time of Evaluation: 14:00 - Subjective Subjective: Patient seen and examined. She is OOB to chair. Complained of some mild soreness at the area of her left supraorbital hematoma. No other complaints. Tolerating physical therapy well. Objective - Vital Signs/Intake and Output Vital Signs (last 24 hours): Temp Pulse Resp BP Pulse Ox 97.9 F 69 21 131/68 97 09/07/17 08:59 09/07/17 08:59 09/07/17 08:59 09/07/17 08:59 09/07/17 08:59 - Medications Medications: Current Medications Amantadine HCl (Amantadine 100 Mg Cap) 100 mg PO DAILY [facility] Last Admin: 09/07/17 08:32 Dose: 100 mg Amlodipine Besylate (Norvasc) 10 mg PO DAILY [facility] Last Admin: 09/07/17 08:33 Dose: 10 mg Aspirin (Ecotrin) 81 mg PO DAILY [facility] Last Admin: 09/07/17 08:32 Dose: 81 mg Atorvastatin Calcium (Lipitor) 80 mg PO [facility] Last Admin: 09/06/17 21:10 Dose: 80 mg Enoxaparin Sodium (Lovenox) 40 mg SC DAILY [facility] PRN Reason: Protocol Last Admin: 09/07/17 08:32 Dose: 40 mg Famotidine (Pepcid) 20 mg PO DAILY [facility] Last Admin: 09/07/17 08:33 Dose: 20 mg Insulin Detemir (Levemir) 12 units SC [facility] Last Admin: 09/06/17 21:11 Dose: 12 units Insulin Human Lispro (Humalog) 0 units SC [facility] PRN Reason: Protocol Last Admin: 09/07/17 12:17 Dose: 3 units Losartan Potassium (Cozaar) 50 mg PO DAILY [facility] Last Admin: 09/07/17 08:32 Dose: 50 mg Magnesium Oxide (Mag-Ox) 400 mg PO BID [facility] Last Admin: 09/07/17 08:31 Dose: 400 mg Ondansetron HCl (Zofran Odt) 4 mg PO Q8H PRN PRN Reason: Nausea/Vomiting Last Admin: 09/06/17 23:30 Dose: 4 mg Sertraline HCl (Zoloft) 12.5 mg PO DAILY [facility] Last Admin: 09/07/17 08:31 Dose: 12.5 mg Trazodone HCl (Desyrel) 25 mg PO HS PRN PRN Reason: Insomnia - Labs Labs: 09/06/17 06:40 09/06/17 06:40 PT 11.5 Seconds (9.8-13.1) 08/27/17 05:30 INR 1.0 (0.9-1.2) 08/27/17 05:30 APTT 31.6 Seconds (25.6-37.1) 08/27/17 05:30 - Additional Findings Additional findings: Physical exam: Constitutional- cooperative, awake, alert Head- Large left supraorbital hematoma, slowly healing. PERRL Eye- PERRL, EOMI ENT- normal exam, MMM. Neck- normal inspection, supple, no JVD Respiratory- CTAB, no wheezes rales rhonchi Cardiovascular- RRR, +S1, +S2 no MRG GI/Abdominal- normal bowel sounds, soft, no mass, no hsm Skin- warm, dry Extremities Exam- normal capillary refill, normal inspection Neurological Exam- alert, awake, oriented Psych- normal mood, normal affect Assessment and Plan - Assessment and Plan (Free Text) Plan: 66 yo female with history of DM2 and HTN was admitted to [facility] on 08/18/17 because of left sided weakness and dysarthria associated with acute CVA. While in there patient fell in the bathroom sustaining left supraorbital contussion- hematoma. She was also found to have UTI. On 08/26/17 she was transferred to [facility] and admitted in Acute Rehab for further therapy. 1. Acute CVA continue PT/OT on ASA and statin physiatry consult with Dr Couch 2. DM2 BS still uncontrolled HgA1C: 7.7 on 08/18/17 in [facility] accuchek ACHS with low Lispro coverage change Levemir to 10 units SC q 12 hours 3. HTN BP stable continue Losartan and Norvasc 4. Contussion-Hematoma, Left Supraorbital slowly healing 5. DVT prophylaxis on Lovenox
--- NOTE | 2017-09-07 18:13 | CP.PCM.PN ---
Subjective - Date & Time of Evaluation Date of Evaluation: 09/07/17 Time of Evaluation: 12:10 - Subjective Subjective: Patient seen in the room no change since yesterday with left eye no other significant pain no sob or fever continue current care Objective - Vital Signs/Intake and Output Vital Signs (last 24 hours): Temp Pulse Resp BP Pulse Ox 97.9 F 69 21 131/68 97 09/07/17 08:59 09/07/17 08:59 09/07/17 08:59 09/07/17 08:59 09/07/17 08:59 - Medications Medications: Current Medications Amantadine HCl (Amantadine 100 Mg Cap) 100 mg PO DAILY [facility] Last Admin: 09/07/17 08:32 Dose: 100 mg Amlodipine Besylate (Norvasc) 10 mg PO DAILY [facility] Last Admin: 09/07/17 08:33 Dose: 10 mg Aspirin (Ecotrin) 81 mg PO DAILY [facility] Last Admin: 09/07/17 08:32 Dose: 81 mg Atorvastatin Calcium (Lipitor) 80 mg PO HS [facility] Last Admin: 09/06/17 21:10 Dose: 80 mg Enoxaparin Sodium (Lovenox) 40 mg SC DAILY [facility] PRN Reason: Protocol Last Admin: 09/07/17 08:32 Dose: 40 mg Famotidine (Pepcid) 20 mg PO DAILY [facility] Last Admin: 09/07/17 08:33 Dose: 20 mg Insulin Detemir (Levemir) 10 units SC Q12 [facility] Insulin Human Lispro (Humalog) 0 units SC ACHS [facility] PRN Reason: Protocol Last Admin: 09/07/17 16:59 Dose: 6 units Losartan Potassium (Cozaar) 50 mg PO DAILY [facility] Last Admin: 09/07/17 08:32 Dose: 50 mg Magnesium Oxide (Mag-Ox) 400 mg PO BID [facility] Last Admin: 09/07/17 17:01 Dose: 400 mg Ondansetron HCl (Zofran Odt) 4 mg PO Q8H PRN PRN Reason: Nausea/Vomiting Last Admin: 09/06/17 23:30 Dose: 4 mg Sertraline HCl (Zoloft) 12.5 mg PO DAILY [facility] Last Admin: 09/07/17 08:31 Dose: 12.5 mg Trazodone HCl (Desyrel) 25 mg PO HS PRN PRN Reason: Insomnia - Labs Labs: 07/10/18 06:40 09/06/17 06:40 PT 11.5 Seconds (9.8-13.1) 08/27/17 05:30 INR 1.0 (0.9-1.2) 08/27/17 05:30 APTT 31.6 Seconds (25.6-37.1) 08/27/17 05:30
[2017-09-07] MEDS: Insulin Detemir 100 Units/ml Inj SC SCH (21:06)
[2017-09-08] MEDS: Insulin Lispro (humaLOG) 100 Units/ml Inj SC SCH ×4 (07:20→21:13)
[2017-09-08] MEDS: Insulin Detemir 100 Units/ml Inj SC SCH ×2 (08:18→21:12)
[2017-09-08] MEDS: Magnesium Oxide 400 mg Tab UD PO SCH ×2 (08:18→16:49)
[2017-09-08] MEDS: Enoxaparin 40 mg Syringe SC SCH (08:19)
--- NOTE | 2017-09-08 09:36 | CP.PCM.PN ---
Subjective - Date & Time of Evaluation Date of Evaluation: 09/08/17 Time of Evaluation: 09:36 - Subjective Subjective: Ms. Kim was seen and examined during therapy session. She is alert, oriented in all spheres. She denies any blurred vision, dizziness, lightheadedness. She is able to follow simple commands with the left side weaker than the right, participates actively during her therapy session.There was no untoward events overnight. Objective - Vital Signs/Intake and Output Vital Signs (last 24 hours): Temp Pulse Resp BP Pulse Ox 98.1 F 68 20 120/62 100 09/08/17 07:51 09/08/17 08:18 09/08/17 07:51 09/08/17 08:18 09/08/17 07:51 - Medications Medications: Current Medications Amantadine HCl (Amantadine 100 Mg Cap) 100 mg PO DAILY [facility] Last Admin: 09/08/17 08:17 Dose: 100 mg Amlodipine Besylate (Norvasc) 10 mg PO DAILY [facility] Last Admin: 09/08/17 08:18 Dose: 10 mg Aspirin (Ecotrin) 81 mg PO DAILY [facility] Last Admin: 09/08/17 08:18 Dose: 81 mg Atorvastatin Calcium (Lipitor) 80 mg PO HS [facility] Last Admin: 09/07/17 21:06 Dose: 80 mg Enoxaparin Sodium (Lovenox) 40 mg SC DAILY [facility] PRN Reason: Protocol Last Admin: 09/08/17 08:19 Dose: 40 mg Famotidine (Pepcid) 20 mg PO DAILY [facility] Last Admin: 09/08/17 08:19 Dose: 20 mg Insulin Detemir (Levemir) 10 units SC Q12 [facility] Last Admin: 09/08/17 08:18 Dose: 10 units Insulin Human Lispro (Humalog) 0 units SC ACHS [facility] PRN Reason: Protocol Last Admin: 09/08/17 07:20 Dose: 2 units Losartan Potassium (Cozaar) 50 mg PO DAILY [facility] Last Admin: 09/08/17 08:18 Dose: 50 mg Magnesium Oxide (Mag-Ox) 400 mg PO BID [facility] Last Admin: 09/08/17 08:18 Dose: 400 mg Ondansetron HCl (Zofran Odt) 4 mg PO Q8H PRN PRN Reason: Nausea/Vomiting Last Admin: 09/06/17 23:30 Dose: 4 mg Sertraline HCl (Zoloft) 12.5 mg PO DAILY [facility] Last Admin: 09/08/17 08:19 Dose: 12.5 mg Trazodone HCl (Desyrel) 25 mg PO HS PRN PRN Reason: Insomnia - Labs Labs: 09/06/17 06:40 09/06/17 06:40 PT 11.5 Seconds (9.8-13.1) 08/27/17 05:30 INR 1.0 (0.9-1.2) 08/27/17 05:30 APTT 31.6 Seconds (25.6-37.1) 08/27/17 05:30 - Constitutional Appears: No Acute Distress - Head Exam Head Exam: NORMAL INSPECTION - Eye Exam Pupil Exam: PERRL - Neurological Exam Neurological Exam: Alert, Awake, Oriented x3 Neuro motor strength exam: Left Upper Extremity: 2/1, Right Upper Extremity: 5, Left Lower Extremity: 3, Right Lower Extremity: 5 Additional comments: neurological unchanged from previous examination. Assessment and Plan (1) Ischemic stroke Assessment & Plan: Continue all current medical, physical, occupational, and speech therapies. Recommend hydration, keeping the head of bed elevated at least 30 degrees while in the bed. Status: Acute
[2017-09-09] MEDS: Insulin Lispro (humaLOG) 100 Units/ml Inj SC SCH ×4 (07:13→21:37)
--- NOTE | 2017-09-09 07:46 | CP.PCM.CON ---
History of Present Illness - History of Present Illness History of Present Illness: Pt seen for supportive therapy/family. Pt discussed plan to return home, discussed progress and working toward increased independence. Pt discussed support of famiily. spoke of commitment, accepting direction and questioned how to support. Strategies for coping and living explored. Pt able to discuss needs, many feelings and strength in experience of many feelings. Support provided. plan: continued sup therapy Past Patient History - Past Medical History & Family History Past Medical History?: Yes - Past Social History Smoking Status: Never Smoked Alcohol: None Drugs: Denies Home Situation {Lives}: With Family (few steps) - CARDIAC Hx Hypertension: Yes - PULMONARY Hx Respiratory Disorders: No - NEUROLOGICAL Hx Neurological Disorder: No - HEENT Hx HEENT Problems: No - RENAL Hx Chronic Kidney Disease: No - ENDOCRINE/METABOLIC Hx Diabetes Mellitus Type 2: Yes - HEMATOLOGICAL/ONCOLOGICAL Hx Blood Disorders: No - INTEGUMENTARY Hx Dermatological Problems: No - MUSCULOSKELETAL/RHEUMATOLOGICAL Hx Falls: Yes - GASTROINTESTINAL Hx Gastrointestinal Disorders: No Other/Comment: Diverticulosis - GENITOURINARY/GYNECOLOGICAL Hx Genitourinary Disorders: No - PSYCHIATRIC Hx Substance Use: No - SURGICAL HISTORY Hx Surgeries: Yes Hx Appendectomy: Yes Hx Cataract Extraction: Yes Hx Section: Yes (X3) Hx Hysterectomy: Yes - ANESTHESIA Hx Anesthesia: Yes Hx Anesthesia Reactions: No Hx Malignant Hyperthermia: No Meds Allergies/Adverse Reactions: Allergies Allergy/AdvReac Type Severity Reaction Status Date / Time No Known Allergies Allergy Verified 08/26/17 20:09 - Medications Medications: Current Medications Amantadine HCl (Amantadine 100 Mg Cap) 100 mg PO DAILY [facility] Last Admin: 09/08/17 08:17 Dose: 100 mg Amlodipine Besylate (Norvasc) 10 mg PO DAILY [facility] Last Admin: 09/08/17 08:18 Dose: 10 mg Aspirin (Ecotrin) 81 mg PO DAILY [facility] Last Admin: 09/08/17 08:18 Dose: 81 mg Atorvastatin Calcium (Lipitor) 80 mg PO HS [facility] Last Admin: 09/08/17 21:11 Dose: 80 mg Enoxaparin Sodium (Lovenox) 40 mg SC DAILY [facility] PRN Reason: Protocol Last Admin: 09/08/17 08:19 Dose: 40 mg Famotidine (Pepcid) 20 mg PO DAILY [facility] Last Admin: 09/08/17 08:19 Dose: 20 mg Insulin Detemir (Levemir) 10 units SC Q12 [facility] Last Admin: 09/08/17 21:12 Dose: 10 units Insulin Human Lispro (Humalog) 0 units SC ACHS [facility] PRN Reason: Protocol Last Admin: 09/09/17 07:13 Dose: 3 units Losartan Potassium (Cozaar) 50 mg PO DAILY [facility] Last Admin: 09/08/17 08:18 Dose: 50 mg Magnesium Oxide (Mag-Ox) 400 mg PO BID [facility] Last Admin: 09/08/17 16:49 Dose: 400 mg Ondansetron HCl (Zofran Odt) 4 mg PO Q8H PRN PRN Reason: Nausea/Vomiting Last Admin: 09/06/17 23:30 Dose: 4 mg Sertraline HCl (Zoloft) 12.5 mg PO DAILY [facility] Last Admin: 09/08/17 08:19 Dose: 12.5 mg Trazodone HCl (Desyrel) 25 mg PO HS PRN PRN Reason: Insomnia Results - Vital Signs Recent Vital Signs: Last Vital Signs Temp 97.7 F 09/09/17 07:24 Pulse 67 09/09/17 07:24 Resp 20 09/09/17 07:24 BP 124/56 L 09/09/17 07:24 Pulse Ox 98 09/09/17 07:24 - Labs Result Diagrams: 09/06/17 06:40 09/06/17 06:40 Labs: Laboratory Results - last 24 hr 09/08/17 09/08/17 09/08/17 11:05 15:37 20:57 POC Glucose (mg/dL) 273 H 195 H 256 H 09/09/17 06:35 POC Glucose (mg/dL) 233 H
[2017-09-09] MEDS: Magnesium Oxide 400 mg Tab UD PO SCH ×2 (08:25→17:08)
[2017-09-09] MEDS: Enoxaparin 40 mg Syringe SC SCH (08:28)
[2017-09-09] MEDS: Insulin Detemir 100 Units/ml Inj SC SCH ×2 (08:28→21:35)
--- NOTE | 2017-09-09 08:51 | CP.PCM.PN ---
Subjective - Date & Time of Evaluation Date of Evaluation: 09/09/17 Time of Evaluation: 08:50 - Subjective Subjective: Ms. Kim was seen and examined at the bedside. She is alert, oriented in all spheres. She denies any blurred vision, dizziness, lightheadedness. She is able to follow simple commands with the left side weaker than the right, attempts to do a passive exercise by herself.There was no untoward events overnight. Objective - Vital Signs/Intake and Output Vital Signs (last 24 hours): Temp Pulse Resp BP Pulse Ox 97.7 F 67 20 124/56 L 98 09/09/17 07:24 09/09/17 08:26 09/09/17 07:24 09/09/17 08:26 09/09/17 07:24 - Medications Medications: Current Medications Amantadine HCl (Amantadine 100 Mg Cap) 100 mg PO DAILY [facility] Last Admin: 09/09/17 08:26 Dose: 100 mg Amlodipine Besylate (Norvasc) 10 mg PO DAILY [facility] Last Admin: 09/09/17 08:26 Dose: 10 mg Aspirin (Ecotrin) 81 mg PO DAILY [facility] Last Admin: 09/09/17 08:26 Dose: 81 mg Atorvastatin Calcium (Lipitor) 80 mg PO HS [facility] Last Admin: 09/08/17 21:11 Dose: 80 mg Enoxaparin Sodium (Lovenox) 40 mg SC DAILY [facility] PRN Reason: Protocol Last Admin: 09/09/17 08:28 Dose: 40 mg Famotidine (Pepcid) 20 mg PO DAILY [facility] Last Admin: 09/09/17 08:26 Dose: 20 mg Insulin Detemir (Levemir) 10 units SC Q12 [facility] Last Admin: 09/09/17 08:28 Dose: 10 units Insulin Human Lispro (Humalog) 0 units SC ACHS [facility] PRN Reason: Protocol Last Admin: 09/09/17 07:13 Dose: 3 units Losartan Potassium (Cozaar) 50 mg PO DAILY [facility] Last Admin: 09/09/17 08:26 Dose: 50 mg Magnesium Oxide (Mag-Ox) 400 mg PO BID [facility] Last Admin: 09/09/17 08:25 Dose: 400 mg Ondansetron HCl (Zofran Odt) 4 mg PO Q8H PRN PRN Reason: Nausea/Vomiting Last Admin: 09/06/17 23:30 Dose: 4 mg Sertraline HCl (Zoloft) 12.5 mg PO DAILY [facility] Last Admin: 09/09/17 08:26 Dose: 12.5 mg Trazodone HCl (Desyrel) 25 mg PO HS PRN PRN Reason: Insomnia - Labs Labs: 09/06/17 06:40 09/06/17 06:40 PT 11.5 Seconds (9.8-13.1) 08/27/17 05:30 INR 1.0 (0.9-1.2) 08/27/17 05:30 APTT 31.6 Seconds (25.6-37.1) 08/27/17 05:30 - Constitutional Appears: No Acute Distress - Head Exam Head Exam: NORMAL INSPECTION - Eye Exam Pupil Exam: PERRL - Neurological Exam Neurological Exam: Alert, Awake, Oriented x3 Neuro motor strength exam: Left Upper Extremity: 0, Right Upper Extremity: 5, Left Lower Extremity: 2/1, Right Lower Extremity: 5 Additional comments: neurological unchanged from previous examination. Assessment and Plan (1) Ischemic stroke Assessment & Plan: Continue all current medical, physical, occupational, and speech therapies. Recommend hydration, keeping the head of bed elevated at least 30 degrees while in the bed. Status: Acute
--- NOTE | 2017-09-09 12:15 | CP.PCM.PN ---
Subjective - Date & Time of Evaluation Date of Evaluation: 09/09/17 Time of Evaluation: 12:14 - Subjective Subjective: Patient seen in the OT gym doing ok left eye appears darker in hue today no change in neurological status stable otherwise participating and improving continue current care Objective - Vital Signs/Intake and Output Vital Signs (last 24 hours): Temp Pulse Resp BP Pulse Ox 97.7 F 67 20 124/56 L 98 09/09/17 07:24 09/09/17 08:26 09/09/17 07:24 09/09/17 08:26 09/09/17 07:24 - Medications Medications: Current Medications Amantadine HCl (Amantadine 100 Mg Cap) 100 mg PO DAILY [facility] Last Admin: 09/09/17 08:26 Dose: 100 mg Amlodipine Besylate (Norvasc) 10 mg PO DAILY [facility] Last Admin: 09/09/17 08:26 Dose: 10 mg Aspirin (Ecotrin) 81 mg PO DAILY [facility] Last Admin: 09/09/17 08:26 Dose: 81 mg Atorvastatin Calcium (Lipitor) 80 mg PO HS [facility] Last Admin: 09/08/17 21:11 Dose: 80 mg Enoxaparin Sodium (Lovenox) 40 mg SC DAILY [facility] PRN Reason: Protocol Last Admin: 09/09/17 08:28 Dose: 40 mg Famotidine (Pepcid) 20 mg PO DAILY [facility] Last Admin: 09/09/17 08:26 Dose: 20 mg Insulin Detemir (Levemir) 10 units SC Q12 [facility] Last Admin: 09/09/17 08:28 Dose: 10 units Insulin Human Lispro (Humalog) 0 units SC ACHS [facility] PRN Reason: Protocol Last Admin: 09/09/17 07:13 Dose: 3 units Losartan Potassium (Cozaar) 50 mg PO DAILY [facility] Last Admin: 09/09/17 08:26 Dose: 50 mg Magnesium Oxide (Mag-Ox) 400 mg PO BID [facility] Last Admin: 09/09/17 08:25 Dose: 400 mg Ondansetron HCl (Zofran Odt) 4 mg PO Q8H PRN PRN Reason: Nausea/Vomiting Last Admin: 09/06/17 23:30 Dose: 4 mg Sertraline HCl (Zoloft) 12.5 mg PO DAILY [facility] Last Admin: 09/09/17 08:26 Dose: 12.5 mg Trazodone HCl (Desyrel) 25 mg PO HS PRN PRN Reason: Insomnia - Labs Labs: 09/06/17 06:40 09/06/17 06:40 PT 11.5 Seconds (9.8-13.1) 08/27/17 05:30 INR 1.0 (0.9-1.2) 08/27/17 05:30 APTT 31.6 Seconds (25.6-37.1) 08/27/17 05:30
[2017-09-10] MEDS: Insulin Lispro (humaLOG) 100 Units/ml Inj SC SCH ×4 (07:14→21:08)
[2017-09-10 07:17] LABS: HEMOGLOBIN 12.1 g/dL (12.0-16.0); MEAN CELL VOLUME 81.6 fl (81.0-99.0); MEAN CORPUSCULAR HEMOGLOBIN 27.8 pg (27.0-31.0); MEAN CORPUSCULAR HGB CONC 34.1 g/dL (33.0-37.0); RBC 4.36 Mil/uL (3.80-5.20); RED CELL DISTRIBUTION WIDTH 13.4 % (11.5-14.5); WHITE BLOOD COUNT 6.4 K/uL (4.8-10.8)
[2017-09-10 07:29] LABS: BLOOD UREA NITROGEN 17 mg/dl (7-17); CALCIUM 9.6 mg/dL (8.4-10.2); GFR AFRICAN-AMERICAN > 60; GFR NON-AFRICAN AMERICAN > 60
[2017-09-10] MEDS: Insulin Detemir 100 Units/ml Inj SC SCH ×2 (08:36→21:07)
[2017-09-10] MEDS: Enoxaparin 40 mg Syringe SC SCH (08:39)
[2017-09-10] MEDS: Magnesium Oxide 400 mg Tab UD PO SCH ×2 (08:41→17:19)
[2017-09-11] MEDS: Insulin Lispro (humaLOG) 100 Units/ml Inj SC SCH ×4 (07:00→21:10)
[2017-09-11] MEDS: Insulin Detemir 100 Units/ml Inj SC SCH ×2 (08:37→21:20)
[2017-09-11] MEDS: Enoxaparin 40 mg Syringe SC SCH (08:41)
[2017-09-11] MEDS: Magnesium Oxide 400 mg Tab UD PO SCH ×2 (08:42→17:32)
[2017-09-12] MEDS: Insulin Lispro (humaLOG) 100 Units/ml Inj SC SCH ×4 (07:16→21:10)
[2017-09-12] MEDS: Insulin Detemir 100 Units/ml Inj SC SCH ×2 (08:32→21:21)
[2017-09-12] MEDS: Enoxaparin 40 mg Syringe SC SCH (08:32)
[2017-09-12] MEDS: Magnesium Oxide 400 mg Tab UD PO SCH ×2 (08:33→17:14)
--- NOTE | 2017-09-12 09:42 | CP.PCM.PN ---
Subjective - Date & Time of Evaluation Date of Evaluation: 09/12/17 Time of Evaluation: 09:42 - Subjective Subjective: Ms. Kim was seen and examined at the bedside. She is alert, oriented in all spheres. She denies any blurred vision, dizziness, lightheadedness. She is able to follow simple commands with the left side weaker than the right, attempts to do a passive exercise by herself, and assist during her ADL.There was no untoward events overnight. Objective - Vital Signs/Intake and Output Vital Signs (last 24 hours): Temp Pulse Resp BP Pulse Ox 98.1 F 77 20 112/51 L 96 09/12/17 07:46 09/12/17 08:33 09/12/17 07:46 09/12/17 08:33 09/12/17 07:46 - Medications Medications: Current Medications Amantadine HCl (Amantadine 100 Mg Cap) 100 mg PO DAILY [facility] Last Admin: 09/12/17 08:33 Dose: 100 mg Amlodipine Besylate (Norvasc) 10 mg PO DAILY [facility] Last Admin: 09/11/17 08:41 Dose: 10 mg Aspirin (Ecotrin) 81 mg PO DAILY [facility] Last Admin: 09/12/17 08:33 Dose: 81 mg Atorvastatin Calcium (Lipitor) 80 mg PO HS [facility] Last Admin: 09/11/17 21:20 Dose: 80 mg Enoxaparin Sodium (Lovenox) 40 mg SC DAILY [facility] PRN Reason: Protocol Last Admin: 09/12/17 08:32 Dose: 40 mg Famotidine (Pepcid) 20 mg PO DAILY [facility] Last Admin: 09/12/17 08:33 Dose: 20 mg Insulin Detemir (Levemir) 10 units SC Q12 [facility] Last Admin: 09/12/17 08:32 Dose: 10 units Insulin Human Lispro (Humalog) 0 units SC ACHS [facility] PRN Reason: Protocol Last Admin: 09/12/17 07:16 Dose: 2 units Losartan Potassium (Cozaar) 50 mg PO DAILY [facility] Last Admin: 09/12/17 08:33 Dose: 50 mg Magnesium Oxide (Mag-Ox) 400 mg PO BID [facility] Last Admin: 09/12/17 08:33 Dose: 400 mg Ondansetron HCl (Zofran Odt) 4 mg PO Q8H PRN PRN Reason: Nausea/Vomiting Last Admin: 09/06/17 23:30 Dose: 4 mg Sertraline HCl (Zoloft) 12.5 mg PO DAILY [facility] Last Admin: 09/12/17 08:33 Dose: 12.5 mg Trazodone HCl (Desyrel) 25 mg PO HS PRN PRN Reason: Insomnia - Labs Labs: 09/10/17 05:30 09/10/17 05:30 PT 11.5 Seconds (9.8-13.1) 08/27/17 05:30 INR 1.0 (0.9-1.2) 08/27/17 05:30 APTT 31.6 Seconds (25.6-37.1) 08/27/17 05:30 - Constitutional Appears: No Acute Distress - Head Exam Head Exam: NORMAL INSPECTION - Eye Exam Pupil Exam: PERRL - Neurological Exam Neurological Exam: Alert, Awake Neuro motor strength exam: Left Upper Extremity: 2/1, Right Upper Extremity: 5, Left Lower Extremity: 2/1, Right Lower Extremity: 5 Additional comments: neurological examination unchanged from previous examination. Assessment and Plan (1) Ischemic stroke Assessment & Plan: Case discussed with Dr. Salguero, Continue all current medical, physical, occupational, and speech therapies. Recommend hydration, keeping the head of bed elevated at least 30 degrees while in the bed. Status: Acute
--- NOTE | 2017-09-12 13:43 | CP.PCM.PN ---
Subjective - Date & Time of Evaluation Date of Evaluation: 09/12/17 Time of Evaluation: 13:43 - Subjective Subjective: sleeping in bed easily awakened tired after physical therapy Objective - Vital Signs/Intake and Output Vital Signs (last 24 hours): Temp Pulse Resp BP Pulse Ox 98.1 F 77 20 112/51 L 96 09/12/17 07:46 09/12/17 08:33 09/12/17 07:46 09/12/17 08:33 09/12/17 07:46 - Medications Medications: Current Medications Amantadine HCl (Amantadine 100 Mg Cap) 100 mg PO DAILY [facility] Last Admin: 09/12/17 08:33 Dose: 100 mg Amlodipine Besylate (Norvasc) 10 mg PO DAILY [facility] Last Admin: 09/11/17 08:41 Dose: 10 mg Aspirin (Ecotrin) 81 mg PO DAILY [facility] Last Admin: 09/12/17 08:33 Dose: 81 mg Atorvastatin Calcium (Lipitor) 80 mg PO HS [facility] Last Admin: 09/11/17 21:20 Dose: 80 mg Famotidine (Pepcid) 20 mg PO DAILY [facility] Last Admin: 09/12/17 08:33 Dose: 20 mg Insulin Detemir (Levemir) 10 units SC Q12 [facility] Last Admin: 09/12/17 08:32 Dose: 10 units Insulin Human Lispro (Humalog) 0 units SC ACHS [facility] PRN Reason: Protocol Last Admin: 09/12/17 12:10 Dose: 3 units Losartan Potassium (Cozaar) 50 mg PO DAILY [facility] Last Admin: 09/12/17 08:33 Dose: 50 mg Magnesium Oxide (Mag-Ox) 400 mg PO BID [facility] Last Admin: 09/12/17 08:33 Dose: 400 mg Ondansetron HCl (Zofran Odt) 4 mg PO Q8H PRN PRN Reason: Nausea/Vomiting Last Admin: 09/06/17 23:30 Dose: 4 mg Sertraline HCl (Zoloft) 12.5 mg PO DAILY [facility] Last Admin: 09/12/17 08:33 Dose: 12.5 mg Trazodone HCl (Desyrel) 25 mg PO HS PRN PRN Reason: Insomnia - Labs Labs: 09/10/17 05:30 09/10/17 05:30 PT 11.5 Seconds (9.8-13.1) 08/27/17 05:30 INR 1.0 (0.9-1.2) 08/27/17 05:30 APTT 31.6 Seconds (25.6-37.1) 08/27/17 05:30 - Constitutional Appears: Well, Non-toxic - Head Exam Head Exam: absent: ATRAUMATIC Additional comments: eechymoses - ENT Exam ENT Exam: Mucous Membranes Dry - Respiratory Exam Respiratory Exam: Clear to Ausculation Bilateral, NORMAL BREATHING PATTERN. absent: Accessory Muscle Use - Cardiovascular Exam Cardiovascular Exam: REGULAR RHYTHM, +S1, +S2 - GI/Abdominal Exam GI & Abdominal Exam: Soft, Normal Bowel Sounds. absent: Tenderness - Neurological Exam Neurological Exam: absent: Alert, Awake Assessment and Plan - Assessment and Plan (Free Text) Assessment: 66 yo female with history of DM2 and HTN was admitted to [facility] on 08/18/17 because of left sided weakness and dysarthria associated with acute CVA. While in there patient fell in the bathroom sustaining left supraorbital contussion- hematoma. She was also found to have UTI. On 08/26/17 she was transferred to [facility] and admitted in Acute Rehab for further therapy. 1. Acute CVA continue PT/OT on ASA and statin physiatry consult with Dr Couch 2. DM2 BS still uncontrolled HgA1C: 7.7 on 08/18/17 in [facility] accuchek ACHS with low Lispro coverage change Levemir to 10 units SC q 12 hours 3. HTN BP stable continue Losartan and Norvasc 4. Contussion-Hematoma, Left Supraorbital slowly healing 5. DVT prophylaxis on Lovenox
[2017-09-13 06:33] LABS: HEMOGLOBIN 12.2 g/dL (12.0-16.0); MEAN CELL VOLUME 81.1 fl (81.0-99.0); MEAN CORPUSCULAR HEMOGLOBIN 27.4 pg (27.0-31.0); MEAN CORPUSCULAR HGB CONC 33.7 g/dL (33.0-37.0); RBC 4.47 Mil/uL (3.80-5.20); RED CELL DISTRIBUTION WIDTH 13.2 % (11.5-14.5); WHITE BLOOD COUNT 7.4 K/uL (4.8-10.8)
[2017-09-13 06:40] LABS: BLOOD UREA NITROGEN 16 mg/dl (7-17); CALCIUM 9.6 mg/dL (8.4-10.2); GFR AFRICAN-AMERICAN > 60; GFR NON-AFRICAN AMERICAN > 60
[2017-09-13] MEDS: Insulin Lispro (humaLOG) 100 Units/ml Inj SC SCH ×4 (06:56→21:00)
[2017-09-13] MEDS: Enoxaparin 40 mg Syringe SC SCH (08:02)
[2017-09-13] MEDS: Magnesium Oxide 400 mg Tab UD PO SCH ×2 (08:02→16:48)
[2017-09-13] MEDS: Insulin Detemir 100 Units/ml Inj SC SCH ×2 (08:03→21:02)
--- NOTE | 2017-09-13 13:31 | PSY.TMCNF ---
Nursing - Vital Signs Vital Signs (Last 8 hours): Vital Signs 09/13/17 09/13/17 09/13/17 08:01 08:03 09:17 Temperature 97.2 F L Pulse Rate 78 70 70 Respiratory 20 Rate Blood Pressure 129/78 129/70 122/69 O2 Sat by Pulse 98 Oximetry Pain: 0 - Medications/Other Issues Comment: Pt at moderate nutritional risk. 1: Consume >75% of meals- partially met, continue. 2: Maintain wt within 2-3 lbs. of current wt- unknown if met, continue. Follow-up due on 09/15/2017 - Bladder Management Bladder Pattern: Normal Voiding Method: Bedpan - Bowel Management Bowel Pattern: Normal - Patient/Family Teaching Comments: N/A - Goals/Time Frame Comments: Pt was seen resting throughout afternoon and attempted to meet with pt at bedside. Pt's Kellie was present in room and reported that pt did not sleep well at night and wanted to rest early. Pt did not open her eyes following command. Discussed with pt's about recreation therapy purpose and benefits. Pt's spouse reported that pt enjoys dancing and was driving [employer]. 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 Will attempt next session when pt is awake and alert to determine leisure interests and orient pt to recreation therapy. Physical Therapy - Bed Mobility Bed Mobility: Minimal Assistance - Transfers Wheelchair to Mat: Minimal Assistance, Moderate Assistance Sit to Stand: Verbal Cues, Minimal Assistance - Ambulation Level of Assistance: Verbal Cues, Minimal Assistance Distance (ft.): 100 Assistive Devices: Narrow base quad cane - Stair Negotiation Stairs: Level of Assistance: Verbal Cues, Moderate Assistance Number of Stairs: 2 Handrails: Right Stairs: Assistive Devices: Right Handrail - Standing Balance Static Stand: Minimal Assistance Dynamic Stand: Moderate Assistance - Pain Pain (assessed during therapy session): 0 - Insight/Carryover Insight/Carryover: Fair - Patient/Family Education Comment: safety awareness, use of LLE, - Assessment/Plan Assessment: Patient receiving skilled PT to work on transfers, standing balance , gait, stairs and safety awareness. Patient progressing from mod to min A for bed mobility, mod to mod/min A for gait, however continues to requires TCs for hip abd with LLE swing and VCs for safety awareness/attention ie: wheelchair propulsion into obstacles, attempting to sit without chair present, attempting to stand without locking brakes. Patient to benefit from continued skilled PT to maximize functional potential before D/C. - Goals Timeframe: 4 weeks Goals: -CG to negotiate 1 flight of steps with single rail. -S to ambulate 250 feet with NBQC. -mod I with sit to/from stand. -S with stand pivot. -S with bed/mat mobility - Provider Therapist: Gretel uHnter PT License Number: [id number] Occupational Therapy - Arousal/Attention/Orientation Patient Orientation: Person, Place, Time, Appropriate to Age, Appropriate to Situation - ADL/IADL Self Feeding: Independent, Set-up Help Grooming: Supervision, Verbal Cues, Set-up Help Bathing-Upper Extremity: Verbal Cues, Set-up Help, Moderate Assistance Bathing-Lower Extremity: Verbal Cues, Set-up Help, Moderate Assistance, Maximum Assistance Dressing-Upper Extremity: Verbal Cues, Set-up Help, Minimal Assistance Dressing-Lower Extremity: Verbal Cues, Set-up Help, Moderate Assistance - Sitting Balance Static Sitting: Supervision Dynamic Sitting: Minimal Assistance Comment: seated at edge of bed - Transfers Wheelchair to Bed Transfers: Verbal Cues, Set-up Help, Minimal Assistance Toilet Transfers: Verbal Cues, Set-up Help, Minimal Assistance - Wheelchair Management Level of Assistance: Verbal Cues, Set-up Help, Minimal Assistance, Moderate Assistance - Upper Extremity Status Right Upper Extremity Comment: P/AROM is WFLS, strength 4+/5 Left Upper Extremity Comment: PROM Is WFLS, but AROM limited with abnormal tone - Pain Pain (assessed during therapy session): 0 - Insight/Carryover Insight/Carryover: Fair - Patient/Family Education Comment: safety awareness, use of LLE, - Assessment/Plan Assessment: Patient receiving skilled PT to work on transfers, standing balance , gait, stairs and safety awareness. Patient progressing from mod to min A for bed mobility, mod to mod/min A for gait, however continues to requires TCs for hip abd with LLE swing and VCs for safety awareness/attention ie: wheelchair propulsion into obstacles, attempting to sit without chair present, attempting to stand without locking brakes. Patient to benefit from continued skilled PT to maximize functional potential before D/C. - Goals Timeframe: 4 weeks Goals: -CG to negotiate 1 flight of steps with single rail. -S to ambulate 250 feet with NBQC. -mod I with sit to/from stand. -S with stand pivot. -S with bed/mat mobility - Provider Therapist: Ny Null, OTR/L Speech Therapy - Plan Assessment: Patient receiving skilled PT to work on transfers, standing balance , gait, stairs and safety awareness. Patient progressing from mod to min A for bed mobility, mod to mod/min A for gait, however continues to requires TCs for hip abd with LLE swing and VCs for safety awareness/attention ie: wheelchair propulsion into obstacles, attempting to sit without chair present, attempting to stand without locking brakes. Patient to benefit from continued skilled PT to maximize functional potential before D/C. Recreational Therapy - Participation Participation: Participates in Individual and/or Group Sessions - Attendance Attendance: 3-5 times per week - Activities Leisure Activities: Cards and Games - Socialization Level of Socialization: Initiates/interacts freely with care givers and peer, Initiates/interacts with caregivers but not with peer - Assessment Assessment/Plan: Patient receiving skilled PT to work on transfers, standing balance, gait, stairs and safety awareness. Patient progressing from mod to min A for bed mobility, mod to mod/min A for gait, however continues to requires TCs for hip abd with LLE swing and VCs for safety awareness/attention ie: wheelchair propulsion into obstacles, attempting to sit without chair present, attempting to stand without locking brakes. Patient to benefit from continued skilled PT to maximize functional potential before D/C. - Provider Therapist: Ene Oliveira, RN [facility] #[id number] Nutrition - Current Diet Current Diet/ Supplement/ Feedings: Heart healthy moderate consistent CHO thin liquids - Appetite Percent Meal Consumed: 75-100% - Comments Comments: N/A - Assessment/Goals/Time Frame Assessment/Goals/Time Frame: Pt at moderate nutritional risk. 1: Consume >75% of meals- partially met, continue. 2: Maintain wt within 2-3 lbs. of current wt - unknown if met, continue. Follow-up due on 09/15/2017 - Provider Provider: Yari Goodman RD Case Management - Psychosocial Assessment Support Systems: Adams Kim (spouse)- [phone] Psychological Interventions/Needs: Patient is alert and oriented x3 and able to verbalize needs. Patient cooperative and motivated for therapy Discharge Concerns: Patient currently requiring min-mod A for functional mobility Patient/Family Meeting: CM met with patient/spouse and rehab team Intervention/Goal/Outcome:: 1. Plan: Home with VNS? as patient continues to demonstrate progress in therapies, patient also able to have 24 hour supervision /care at home from spouse and children. CM to initiate caregiver training with family and patient to be reteamed again next week for most appropriate discharge plan. 2. Tentative discharge date: 09/19/2017. 3. continued stay auth, LAD: 09/08, updates to be faxed to insurance at that time. 4. DME needs? 6. continued emotional support. - Discharge Plan Discharge Plan: Home with significant other/family, Home with services - Provider Provider: RUPA Durbin, PHYSICIAN AIDE License Number: [id number] Rehabilitation Plan - Treatment Plan Treatment Plan: Physical Therapy, Occupational Therapy, Dietary, Patient/Family Education - Discharge Plan Estimated Date of Discharge: 09/19/17 Discharge to: Home
--- NOTE | 2017-09-13 14:01 | CP.PCM.PN ---
Subjective - Date & Time of Evaluation Date of Evaluation: 09/13/17 Time of Evaluation: 14:00 - Subjective Subjective: Patient seen and doing ok no pain left eye still with hematoma, little resorption set for 09/19/17 d/c home family training has been done and will continue Objective - Vital Signs/Intake and Output Vital Signs (last 24 hours): Temp Pulse Resp BP Pulse Ox 97.2 F L 70 20 122/69 98 09/13/17 09:17 09/13/17 09:17 09/13/17 09:17 09/13/17 09:17 09/13/17 09:17 - Medications Medications: Current Medications Amantadine HCl (Amantadine 100 Mg Cap) 100 mg PO DAILY [facility] Stop: 09/19/17 20:00 Last Admin: 09/13/17 08:02 Dose: 100 mg Amlodipine Besylate (Norvasc) 10 mg PO DAILY [facility] Last Admin: 09/13/17 08:01 Dose: 10 mg Aspirin (Ecotrin) 81 mg PO DAILY [facility] Last Admin: 09/13/17 08:02 Dose: 81 mg Atorvastatin Calcium (Lipitor) 80 mg PO HS [facility] Last Admin: 09/12/17 21:20 Dose: 80 mg Enoxaparin Sodium (Lovenox) 40 mg SC DAILY [facility] PRN Reason: Protocol Last Admin: 09/13/17 08:02 Dose: 40 mg Famotidine (Pepcid) 20 mg PO DAILY [facility] Last Admin: 09/13/17 08:04 Dose: 20 mg Insulin Detemir (Levemir) 10 units SC Q12 [facility] Last Admin: 09/13/17 08:03 Dose: 10 units Insulin Human Lispro (Humalog) 0 units SC ACHS [facility] PRN Reason: Protocol Last Admin: 09/13/17 12:34 Dose: 3 units Losartan Potassium (Cozaar) 50 mg PO DAILY [facility] Last Admin: 09/13/17 08:03 Dose: 50 mg Magnesium Oxide (Mag-Ox) 400 mg PO BID [facility] Last Admin: 09/13/17 08:02 Dose: 400 mg Ondansetron HCl (Zofran Odt) 4 mg PO Q8H PRN PRN Reason: Nausea/Vomiting Last Admin: 09/06/17 23:30 Dose: 4 mg Sertraline HCl (Zoloft) 12.5 mg PO DAILY [facility] Last Admin: 09/13/17 08:04 Dose: 12.5 mg - Labs Labs: 09/13/17 05:30 09/13/17 05:30 PT 11.5 Seconds (9.8-13.1) 08/27/17 05:30 INR 1.0 (0.9-1.2) 08/27/17 05:30 APTT 31.6 Seconds (25.6-37.1) 08/27/17 05:30
[2017-09-14] MEDS: Insulin Lispro (humaLOG) 100 Units/ml Inj SC SCH ×4 (06:55→21:38)
[2017-09-14] MEDS: Magnesium Oxide 400 mg Tab UD PO SCH ×2 (09:11→17:08)
[2017-09-14] MEDS: Insulin Detemir 100 Units/ml Inj SC SCH ×2 (09:11→21:37)
[2017-09-14] MEDS: Enoxaparin 40 mg Syringe SC SCH (09:11)
--- NOTE | 2017-09-14 10:23 | CP.PCM.PN ---
Subjective - Date & Time of Evaluation Date of Evaluation: 09/14/17 Time of Evaluation: 10:22 - Subjective Subjective: Ms. Kim was seen and examined at the bedside. She is alert, oriented in all spheres. She denies any blurred vision, dizziness, lightheadedness. She is able to follow simple commands with the left side weaker than the right, attempts to do a passive exercise by herself, and assist during her ADL. She is able to minimally flex and extend her left hand. She can also move her upper extremity in a vertical position until the shoulder level. There was no untoward events overnight. Objective - Vital Signs/Intake and Output Vital Signs (last 24 hours): Temp Pulse Resp BP Pulse Ox 97.2 F L 85 19 133/55 L 97 09/14/17 08:45 09/14/17 09:12 09/14/17 08:45 09/14/17 09:12 09/14/17 08:45 - Medications Medications: Current Medications Amantadine HCl (Amantadine 100 Mg Cap) 100 mg PO DAILY [facility] Stop: 09/19/17 20:00 Last Admin: 09/14/17 09:10 Dose: 100 mg Amlodipine Besylate (Norvasc) 10 mg PO DAILY [facility] Last Admin: 09/14/17 09:12 Dose: 10 mg Aspirin (Ecotrin) 81 mg PO DAILY [facility] Last Admin: 09/14/17 09:10 Dose: 81 mg Atorvastatin Calcium (Lipitor) 80 mg PO HS [facility] Last Admin: 09/13/17 21:02 Dose: 80 mg Enoxaparin Sodium (Lovenox) 40 mg SC DAILY [facility] PRN Reason: Protocol Last Admin: 09/14/17 09:11 Dose: 40 mg Famotidine (Pepcid) 20 mg PO DAILY [facility] Last Admin: 09/14/17 09:12 Dose: 20 mg Insulin Detemir (Levemir) 10 units SC Q12 [facility] Last Admin: 09/14/17 09:11 Dose: 10 units Insulin Human Lispro (Humalog) 0 units SC ACHS [facility] PRN Reason: Protocol Last Admin: 09/14/17 06:55 Dose: 2 units Losartan Potassium (Cozaar) 50 mg PO DAILY [facility] Last Admin: 09/14/17 09:10 Dose: 50 mg Magnesium Oxide (Mag-Ox) 400 mg PO BID [facility] Last Admin: 09/14/17 09:11 Dose: 400 mg Ondansetron HCl (Zofran Odt) 4 mg PO Q8H PRN PRN Reason: Nausea/Vomiting Last Admin: 09/06/17 23:30 Dose: 4 mg Sertraline HCl (Zoloft) 12.5 mg PO DAILY [facility] Last Admin: 09/14/17 09:12 Dose: 12.5 mg - Labs Labs: 09/13/17 05:30 09/13/17 05:30 PT 11.5 Seconds (9.8-13.1) 08/27/17 05:30 INR 1.0 (0.9-1.2) 08/27/17 05:30 APTT 31.6 Seconds (25.6-37.1) 08/27/17 05:30 - Constitutional Appears: No Acute Distress - Head Exam Head Exam: NORMAL INSPECTION - Eye Exam Pupil Exam: PERRL - Neurological Exam Neurological Exam: Alert, Awake, Oriented x3 Neuro motor strength exam: Left Upper Extremity: 2/1, Right Upper Extremity: 5, Left Lower Extremity: 2/1, Right Lower Extremity: 5 Additional comments: neurological unchanged from previous examination. Assessment and Plan (1) Ischemic stroke Assessment & Plan: Case discussed with Dr. Salguero, Continue all current medical, physical, occupational, and speech therapies. Recommend hydration, keeping the head of bed elevated at least 30 degrees while in the bed. Status: Acute
--- NOTE | 2017-09-14 14:47 | CP.PCM.PN ---
Subjective - Date & Time of Evaluation Date of Evaluation: 09/12/17 Time of Evaluation: 16:00 - Subjective Subjective: no acute complaints at present Objective - Vital Signs/Intake and Output Vital Signs (last 24 hours): Temp Pulse Resp BP Pulse Ox 97.2 F L 85 22 133/55 L 97 09/14/17 11:03 09/14/17 11:03 09/14/17 11:03 09/14/17 11:03 09/14/17 08:45 - Medications Medications: Current Medications Amantadine HCl (Amantadine 100 Mg Cap) 100 mg PO DAILY [facility] Stop: 09/19/17 20:00 Last Admin: 09/14/17 09:10 Dose: 100 mg Amlodipine Besylate (Norvasc) 10 mg PO DAILY [facility] Last Admin: 09/14/17 09:12 Dose: 10 mg Aspirin (Ecotrin) 81 mg PO DAILY [facility] Last Admin: 09/14/17 09:10 Dose: 81 mg Atorvastatin Calcium (Lipitor) 80 mg PO HS [facility] Last Admin: 09/13/17 21:02 Dose: 80 mg Enoxaparin Sodium (Lovenox) 40 mg SC DAILY [facility] PRN Reason: Protocol Last Admin: 09/14/17 09:11 Dose: 40 mg Famotidine (Pepcid) 20 mg PO DAILY [facility] Last Admin: 09/14/17 09:12 Dose: 20 mg Insulin Detemir (Levemir) 10 units SC Q12 [facility] Last Admin: 09/14/17 09:11 Dose: 10 units Insulin Human Lispro (Humalog) 0 units SC ACHS [facility] PRN Reason: Protocol Last Admin: 09/14/17 12:48 Dose: 4 units Losartan Potassium (Cozaar) 50 mg PO DAILY [facility] Last Admin: 09/14/17 09:10 Dose: 50 mg Magnesium Oxide (Mag-Ox) 400 mg PO BID [facility] Last Admin: 09/14/17 09:11 Dose: 400 mg Ondansetron HCl (Zofran Odt) 4 mg PO Q8H PRN PRN Reason: Nausea/Vomiting Last Admin: 09/06/17 23:30 Dose: 4 mg Sertraline HCl (Zoloft) 12.5 mg PO DAILY [facility] Last Admin: 09/14/17 09:12 Dose: 12.5 mg - Labs Labs: 09/13/17 05:30 09/13/17 05:30 PT 11.5 Seconds (9.8-13.1) 08/27/17 05:30 INR 1.0 (0.9-1.2) 08/27/17 05:30 APTT 31.6 Seconds (25.6-37.1) 08/27/17 05:30 - Head Exam Head Exam: ATRAUMATIC, NORMAL INSPECTION, NORMOCEPHALIC - Eye Exam Eye Exam: EOMI, Normal appearance, PERRL Pupil Exam: NORMAL ACCOMODATION - ENT Exam ENT Exam: Mucous Membranes Moist, Normal Exam - Neck Exam Neck Exam: Full ROM, Normal Inspection - Respiratory Exam Respiratory Exam: Clear to Ausculation Bilateral, NORMAL BREATHING PATTERN - Cardiovascular Exam Cardiovascular Exam: REGULAR RHYTHM - GI/Abdominal Exam GI & Abdominal Exam: Soft, Normal Bowel Sounds - Rectal Exam Rectal Exam: NORMAL INSPECTION - Exam External exam: NORMAL EXTERNAL EXAM - Extremities Exam Extremities Exam: Full ROM, Normal Capillary Refill, Normal Inspection - Neurological Exam Neurological Exam: Alert, Awake Neuro motor strength exam: Left Upper Extremity: 2/1, Right Upper Extremity: 4, Left Lower Extremity: 3, Right Lower Extremity: 4 - Psychiatric Exam Psychiatric exam: Normal Affect, Normal Mood - Skin Skin Exam: Dry Assessment and Plan (1) Ischemic stroke Assessment & Plan: plan for physical, occupational, rec and speech therapy Status: Acute
--- NOTE | 2017-09-14 15:08 | CP.PCM.PN ---
Subjective - Date & Time of Evaluation Date of Evaluation: 09/14/17 Time of Evaluation: 15:07 - Subjective Subjective: more awake doing well complains of pain left forehead Objective - Vital Signs/Intake and Output Vital Signs (last 24 hours): Temp Pulse Resp BP Pulse Ox 97.2 F L 85 22 133/55 L 97 09/14/17 11:03 09/14/17 11:03 09/14/17 11:03 09/14/17 11:03 09/14/17 08:45 - Medications Medications: Current Medications Amantadine HCl (Amantadine 100 Mg Cap) 100 mg PO DAILY [facility] Stop: 09/19/17 20:00 Last Admin: 09/14/17 09:10 Dose: 100 mg Amlodipine Besylate (Norvasc) 10 mg PO DAILY [facility] Last Admin: 09/14/17 09:12 Dose: 10 mg Aspirin (Ecotrin) 81 mg PO DAILY [facility] Last Admin: 09/14/17 09:10 Dose: 81 mg Atorvastatin Calcium (Lipitor) 80 mg PO HS [facility] Last Admin: 09/13/17 21:02 Dose: 80 mg Enoxaparin Sodium (Lovenox) 40 mg SC DAILY [facility] PRN Reason: Protocol Last Admin: 09/14/17 09:11 Dose: 40 mg Famotidine (Pepcid) 20 mg PO DAILY [facility] Last Admin: 09/14/17 09:12 Dose: 20 mg Insulin Detemir (Levemir) 10 units SC Q12 [facility] Last Admin: 09/14/17 09:11 Dose: 10 units Insulin Human Lispro (Humalog) 0 units SC ACHS [facility] PRN Reason: Protocol Last Admin: 09/14/17 12:48 Dose: 4 units Losartan Potassium (Cozaar) 50 mg PO DAILY [facility] Last Admin: 09/14/17 09:10 Dose: 50 mg Magnesium Oxide (Mag-Ox) 400 mg PO BID [facility] Last Admin: 09/14/17 09:11 Dose: 400 mg Ondansetron HCl (Zofran Odt) 4 mg PO Q8H PRN PRN Reason: Nausea/Vomiting Last Admin: 09/06/17 23:30 Dose: 4 mg Sertraline HCl (Zoloft) 12.5 mg PO DAILY [facility] Last Admin: 09/14/17 09:12 Dose: 12.5 mg - Labs Labs: 09/13/17 05:30 07/17/18 05:30 PT 11.5 Seconds (9.8-13.1) 08/27/17 05:30 INR 1.0 (0.9-1.2) 08/27/17 05:30 APTT 31.6 Seconds (25.6-37.1) 08/27/17 05:30 - Additional Findings Additional findings: - Constitutional Appears: Well, Non-toxic - Head Exam Head Exam: absent: NOT ATRAUMATIC Additional comments: above eye swelling hematoma swelling more evident today eechymoses - ENT Exam ENT Exam: Mucous Membranes Dry - Respiratory Exam Respiratory Exam: Clear to Ausculation Bilateral, NORMAL BREATHING PATTERN. absent: Accessory Muscle Use - Cardiovascular Exam Cardiovascular Exam: REGULAR RHYTHM, +S1, +S2 - GI/Abdominal Exam GI & Abdominal Exam: Soft, Normal Bowel Sounds. absent: Tenderness - Neurological Exam Neurological Exam: absent: Alert, Awake Assessment and Plan - Assessment and Plan (Free Text) Assessment: 66 yo female with history of DM2 and HTN was [place] [facility] [place] because of left sided weakness and dysarthria associated with acute CVA. While in there patient fell in the bathroom sustaining left supraorbital contussion- hematoma. She was also found to have UTI. On 08/26/17 she was transferred to [facility] and admitted in Acute Rehab for further therapy. 1. Acute CVA continue PT/OT on ASA and statin physiatry consult with Dr Couch 2. DM2 BS still uncontrolled HgA1C: 7.7 on 08/18/17 [place] [facility] [place] with low Lispro coverage change Levemir to 10 units SC q 12 hours 3. HTN BP stable continue Losartan and Norvasc 4. Contussion-Hematoma, Left Supraorbital slowly healing 5. DVT prophylaxis on Lovenox
--- NOTE | 2017-09-14 20:07 | PN ---
DATE: 09/14/2017 SUBJECTIVE: The patient is feeling fine. No acute complaints at present. A 66-year-old female. PHYSICAL EXAMINATION: VITAL SIGNS: Stable. NECK: Supple. CHEST: Symmetrical. HEART: Sounds S1 and S2. ABDOMEN: Benign. EXTREMITIES: No clubbing, cyanosis, or edema. IMPRESSION: Acute cerebrovascular accident, hypertension and diabetes. PLAN: Physical therapy, occupational therapy, recreational therapy, and speech therapy. The patient's discharge planning discussed with the patient. The patient's discharge is for 09/19/2017, followed by home services. Jaziel Samayoa MD
[2017-09-15] MEDS: Insulin Lispro (humaLOG) 100 Units/ml Inj SC SCH ×4 (07:34→22:01)
[2017-09-15] MEDS: Insulin Detemir 100 Units/ml Inj SC SCH ×2 (08:20→21:59)
[2017-09-15] MEDS: Enoxaparin 40 mg Syringe SC SCH (08:21)
[2017-09-15] MEDS: Magnesium Oxide 400 mg Tab UD PO SCH ×2 (08:22→17:03)
--- NOTE | 2017-09-15 11:07 | CP.PCM.PN ---
Subjective - Date & Time of Evaluation Date of Evaluation: 09/15/17 Time of Evaluation: 11:07 - Subjective Subjective: Ms. Kim was seen and examined during therapy session. She is alert, oriented in all spheres. She denies any blurred vision, dizziness, lightheadedness. She is able to follow simple commands with the left side weaker than the right, attempts to do a passive exercise by herself, and assist during her ADL. She is able to minimally flex and extend her left hand. She can also move her upper extremity in a vertical position until the shoulder level, participates actively during her therapy session.There was no untoward events overnight. Objective - Vital Signs/Intake and Output Vital Signs (last 24 hours): Temp Pulse Resp BP Pulse Ox 97.7 F 72 20 126/56 L 96 09/15/17 08:04 09/15/17 08:23 09/15/17 08:04 09/15/17 08:23 09/15/17 08:04 - Medications Medications: Current Medications Amantadine HCl (Amantadine 100 Mg Cap) 100 mg PO DAILY [facility] Stop: 09/19/17 20:00 Last Admin: 09/15/17 08:22 Dose: 100 mg Amlodipine Besylate (Norvasc) 10 mg PO DAILY [facility] Last Admin: 09/15/17 08:22 Dose: 10 mg Aspirin (Ecotrin) 81 mg PO DAILY [facility] Last Admin: 09/15/17 08:21 Dose: 81 mg Atorvastatin Calcium (Lipitor) 80 mg PO HS [facility] Last Admin: 09/14/17 21:37 Dose: 80 mg Enoxaparin Sodium (Lovenox) 40 mg SC DAILY [facility] PRN Reason: Protocol Last Admin: 09/15/17 08:21 Dose: 40 mg Famotidine (Pepcid) 20 mg PO DAILY [facility] Last Admin: 09/15/17 08:22 Dose: 20 mg Insulin Detemir (Levemir) 10 units SC Q12 [facility] Last Admin: 09/15/17 08:20 Dose: 10 units Insulin Human Lispro (Humalog) 0 units SC ACHS [facility] PRN Reason: Protocol Last Admin: 09/15/17 07:34 Dose: 2 units Losartan Potassium (Cozaar) 50 mg PO DAILY [facility] Last Admin: 09/15/17 08:23 Dose: 50 mg Magnesium Oxide (Mag-Ox) 400 mg PO BID [facility] Last Admin: 09/15/17 08:22 Dose: 400 mg Ondansetron HCl (Zofran Odt) 4 mg PO Q8H PRN PRN Reason: Nausea/Vomiting Last Admin: 09/06/17 23:30 Dose: 4 mg Sertraline HCl (Zoloft) 12.5 mg PO DAILY [facility] Last Admin: 09/15/17 08:21 Dose: 12.5 mg - Labs Labs: 09/13/17 05:30 09/13/17 05:30 PT 11.5 Seconds (9.8-13.1) 08/27/17 05:30 INR 1.0 (0.9-1.2) 08/27/17 05:30 APTT 31.6 Seconds (25.6-37.1) 08/27/17 05:30 - Constitutional Appears: No Acute Distress - Head Exam Head Exam: NORMAL INSPECTION - Neurological Exam Neurological Exam: Alert, Awake, Oriented x3 Neuro motor strength exam: Left Upper Extremity: 0, Right Upper Extremity: 5, Left Lower Extremity: 3, Right Lower Extremity: 5 Additional comments: neurological unchanged from previous examination Assessment and Plan (1) Ischemic stroke Assessment & Plan: Case discussed with Dr. Salguero, Continue all current medical, physical, occupational, and speech therapies. Recommend hydration, keeping the head of bed elevated at least 30 degrees while in the bed. Status: Acute
[2017-09-16 06:21] LABS: HEMOGLOBIN 12.4 g/dL (12.0-16.0); MEAN CELL VOLUME 82.1 fl (81.0-99.0); MEAN CORPUSCULAR HEMOGLOBIN 27.9 pg (27.0-31.0); MEAN CORPUSCULAR HGB CONC 33.9 g/dL (33.0-37.0); RBC 4.44 Mil/uL (3.80-5.20); RED CELL DISTRIBUTION WIDTH 13.4 % (11.5-14.5); WHITE BLOOD COUNT 6.9 K/uL (4.8-10.8)
[2017-09-16 06:40] LABS: BLOOD UREA NITROGEN 18 mg/dl (7-17); GFR AFRICAN-AMERICAN > 60; GFR NON-AFRICAN AMERICAN > 60
[2017-09-16 06:41] LABS: CALCIUM 9.6 mg/dL (8.4-10.2)
[2017-09-16] MEDS: Insulin Lispro (humaLOG) 100 Units/ml Inj SC SCH ×4 (07:44→21:30)
[2017-09-16] MEDS: Enoxaparin 40 mg Syringe SC SCH (08:05)
[2017-09-16] MEDS: Insulin Detemir 100 Units/ml Inj SC SCH ×2 (08:06→21:32)
[2017-09-16] MEDS: Magnesium Oxide 400 mg Tab UD PO SCH ×2 (08:06→17:30)
--- NOTE | 2017-09-16 08:35 | CP.PCM.CON ---
History of Present Illness - History of Present Illness History of Present Illness: Pt seen for supportive therapy along with 7:20-7:40. Pt/ discussed gains over the week and continued positive thinking. Discussed goals of recovery/complete. Discussed living daily, remaining independant, active and focusing on competancies. expressed support and care. Patient reported decline in dysphora with gains made and movement. The future discussed and their life together. Anxiety management strategies also introduced with patient's report of "worry" at times. Past Patient History - Past Medical History & Family History Past Medical History?: Yes - Past Social History Smoking Status: Never Smoked Alcohol: None Drugs: Denies Home Situation {Lives}: With Family (few steps) - CARDIAC Hx Hypertension: Yes - PULMONARY Hx Respiratory Disorders: No - NEUROLOGICAL Hx Neurological Disorder: No - HEENT Hx HEENT Problems: No - RENAL Hx Chronic Kidney Disease: No - ENDOCRINE/METABOLIC Hx Diabetes Mellitus Type 2: Yes - HEMATOLOGICAL/ONCOLOGICAL Hx Blood Disorders: No - INTEGUMENTARY Hx Dermatological Problems: No - MUSCULOSKELETAL/RHEUMATOLOGICAL Hx Falls: Yes - GASTROINTESTINAL Hx Gastrointestinal Disorders: No Other/Comment: Diverticulosis - GENITOURINARY/GYNECOLOGICAL Hx Genitourinary Disorders: No - PSYCHIATRIC Hx Substance Use: No - SURGICAL HISTORY Hx Surgeries: Yes Hx Appendectomy: Yes Hx Cataract Extraction: Yes Hx Section: Yes (X3) Hx Hysterectomy: Yes - ANESTHESIA Hx Anesthesia: Yes Hx Anesthesia Reactions: No Hx Malignant Hyperthermia: No Meds Allergies/Adverse Reactions: Allergies Allergy/AdvReac Type Severity Reaction Status Date / Time No Known Allergies Allergy Verified 08/26/17 20:09 - Medications Medications: Current Medications Amantadine HCl (Amantadine 100 Mg Cap) 100 mg PO DAILY [facility] Stop: 09/19/17 20:00 Last Admin: 09/16/17 08:05 Dose: 100 mg Amlodipine Besylate (Norvasc) 10 mg PO DAILY [facility] Last Admin: 09/16/17 08:11 Dose: 10 mg Aspirin (Ecotrin) 81 mg PO DAILY [facility] Last Admin: 09/16/17 08:06 Dose: 81 mg Atorvastatin Calcium (Lipitor) 80 mg PO HS [facility] Last Admin: 09/15/17 22:01 Dose: 80 mg Enoxaparin Sodium (Lovenox) 40 mg SC DAILY [facility] PRN Reason: Protocol Last Admin: 09/16/17 08:05 Dose: 40 mg Famotidine (Pepcid) 20 mg PO DAILY [facility] Last Admin: 09/16/17 08:05 Dose: 20 mg Insulin Detemir (Levemir) 10 units SC Q12 [facility] Last Admin: 09/16/17 08:06 Dose: 10 units Insulin Human Lispro (Humalog) 0 units SC ACHS [facility] PRN Reason: Protocol Last Admin: 09/16/17 07:44 Dose: 2 units Losartan Potassium (Cozaar) 50 mg PO DAILY [facility] Last Admin: 09/16/17 08:05 Dose: 50 mg Magnesium Oxide (Mag-Ox) 400 mg PO BID [facility] Last Admin: 09/16/17 08:06 Dose: 400 mg Ondansetron HCl (Zofran Odt) 4 mg PO Q8H PRN PRN Reason: Nausea/Vomiting Last Admin: 09/06/17 23:30 Dose: 4 mg Sertraline HCl (Zoloft) 12.5 mg PO DAILY [facility] Last Admin: 09/16/17 08:08 Dose: 12.5 mg Results - Vital Signs Recent Vital Signs: Last Vital Signs Temp 97.0 F L 09/15/17 20:00 Pulse 80 09/16/17 08:11 Resp 20 09/15/17 20:00 BP 124/60 09/16/17 08:11 Pulse Ox 97 09/15/17 20:00 - Labs Result Diagrams: 09/16/17 05:25 09/16/17 05:25 Labs: Laboratory Results - last 24 hr 09/13/17 09/14/17 09/14/17 20:55 06:31 11:42 WBC RBC Hgb Hct MCV MCH MCHC RDW Plt Count Sodium Potassium Chloride Carbon Dioxide Anion Gap BUN Creatinine Est GFR ( Amer) Est GFR (Non-Af Amer) POC Glucose (mg/dL) 215 H 189 H 251 H Random Glucose Calcium 09/14/17 09/14/17 09/15/17 16:13 20:51 06:27 WBC RBC Hgb Hct MCV MCH MCHC RDW Plt Count Sodium Potassium Chloride Carbon Dioxide Anion Gap BUN Creatinine Est GFR ( Amer) Est GFR (Non-Af Amer) POC Glucose (mg/dL) 189 H 188 H 179 H Random Glucose Calcium 09/15/17 09/15/17 09/15/17 11:06 16:03 20:46 WBC RBC Hgb Hct MCV MCH MCHC RDW Plt Count Sodium Potassium Chloride Carbon Dioxide Anion Gap BUN Creatinine Est GFR ( Amer) Est GFR (Non-Af Amer) POC Glucose (mg/dL) 252 H 189 H 202 H Random Glucose Calcium 09/16/17 09/16/17 05:25 05:25 WBC 6.9 RBC 4.44 Hgb 12.4 Hct 36.4 MCV 82.1 MCH 27.9 MCHC 33.9 RDW 13.4 Plt Count 289 Sodium 140 Potassium 4.1 Chloride 101 Carbon Dioxide 27 Anion Gap 16 BUN 18 H Creatinine 0.6 L Est GFR ( Amer) > 60 Est GFR (Non-Af Amer) > 60 POC Glucose (mg/dL) Random Glucose 186 H Calcium 9.6
--- NOTE | 2017-09-16 10:37 | CP.PCM.PN ---
Subjective - Date & Time of Evaluation Date of Evaluation: 09/16/17 Time of Evaluation: 10:36 - Subjective Subjective: Ms. Kim was seen and examined during therapy session. She is alert, oriented in all spheres. She further states of her impending discharge on Tuesday. She denies any blurred vision, dizziness, lightheadedness. She is able to follow simple commands with the left side weaker than the right, attempts to do a passive exercise by herself, and assist during her ADL. She is able to minimally flex and extend her left hand. She can also move her upper extremity in a vertical position until the shoulder level, participates actively during her therapy session. There was no untoward events overnight. Objective - Vital Signs/Intake and Output Vital Signs (last 24 hours): Temp Pulse Resp BP Pulse Ox 97.5 F L 74 20 124/58 L 98 09/16/17 08:31 09/16/17 08:31 09/16/17 08:31 09/16/17 08:31 09/16/17 08:31 - Medications Medications: Current Medications Amantadine HCl (Amantadine 100 Mg Cap) 100 mg PO DAILY [facility] Stop: 09/19/17 20:00 Last Admin: 09/16/17 08:05 Dose: 100 mg Amlodipine Besylate (Norvasc) 10 mg PO DAILY [facility] Last Admin: 09/16/17 08:11 Dose: 10 mg Aspirin (Ecotrin) 81 mg PO DAILY [facility] Last Admin: 09/16/17 08:06 Dose: 81 mg Atorvastatin Calcium (Lipitor) 80 mg PO HS [facility] Last Admin: 09/15/17 22:01 Dose: 80 mg Famotidine (Pepcid) 20 mg PO DAILY [facility] Last Admin: 09/16/17 08:05 Dose: 20 mg Insulin Detemir (Levemir) 10 units SC Q12 [facility] Last Admin: 09/16/17 08:06 Dose: 10 units Insulin Human Lispro (Humalog) [address] [facility] PRN Reason: Protocol Last Admin: 09/16/17 07:44 Dose: 2 units Losartan Potassium (Cozaar) 50 mg PO DAILY [facility] Last Admin: 09/16/17 08:05 Dose: 50 mg Magnesium Oxide (Mag-Ox) 400 mg PO BID [facility] Last Admin: 09/16/17 08:06 Dose: 400 mg Ondansetron HCl (Zofran Odt) 4 mg PO Q8H PRN PRN Reason: Nausea/Vomiting Last Admin: 09/06/17 23:30 Dose: 4 mg Sertraline HCl (Zoloft) 12.5 mg PO DAILY [facility] Last Admin: 09/16/17 08:08 Dose: 12.5 mg - Labs Labs: 09/16/17 05:25 09/16/17 05:25 PT 11.5 Seconds (9.8-13.1) 08/27/17 05:30 INR 1.0 (0.9-1.2) 08/27/17 05:30 APTT 31.6 Seconds (25.6-37.1) 08/27/17 05:30 - Constitutional Appears: No Acute Distress - Head Exam Head Exam: NORMAL INSPECTION - Eye Exam Pupil Exam: PERRL - Neurological Exam Neurological Exam: Alert, Awake, Oriented x3 Neuro motor strength exam: Left Upper Extremity: 2/1, Right Upper Extremity: 5, Left Lower Extremity: 2/1, Right Lower Extremity: 5 Additional comments: neurological unchanged from previous examination. Assessment and Plan (1) Ischemic stroke Assessment & Plan: Case discussed with Dr. Salguero, Continue all current medical, physical, occupational, and speech therapies. Recommend hydration, keeping the head of bed elevated at least 30 degrees while in the bed. Status: Acute
--- NOTE | 2017-09-16 12:53 | CP.PCM.PN ---
Subjective - Date & Time of Evaluation Date of Evaluation: 09/16/17 Time of Evaluation: 10:30 - Subjective Subjective: Patient seen and examined. Denied any complaint Objective - Vital Signs/Intake and Output Vital Signs (last 24 hours): Temp Pulse Resp BP Pulse Ox 97.5 F L 74 20 124/58 L 98 09/16/17 08:31 09/16/17 08:31 09/16/17 08:31 09/16/17 08:31 09/16/17 08:31 - Medications Medications: Current Medications Amantadine HCl (Amantadine 100 Mg Cap) 100 mg PO DAILY [facility] Stop: 09/19/17 20:00 Last Admin: 09/16/17 08:05 Dose: 100 mg Amlodipine Besylate (Norvasc) 10 mg PO DAILY [facility] Last Admin: 09/16/17 08:11 Dose: 10 mg Aspirin (Ecotrin) 81 mg PO DAILY [facility] Last Admin: 09/16/17 08:06 Dose: 81 mg Atorvastatin Calcium (Lipitor) 80 mg PO HS [facility] Last Admin: 09/15/17 22:01 Dose: 80 mg Famotidine (Pepcid) 20 mg PO DAILY [facility] Last Admin: 09/16/17 08:05 Dose: 20 mg Insulin Detemir (Levemir) 10 units SC Q12 [facility] Last Admin: 09/16/17 08:06 Dose: 10 units Insulin Human Lispro (Humalog) 0 units SC ACHS [facility] PRN Reason: Protocol Last Admin: 09/16/17 07:44 Dose: 2 units Losartan Potassium (Cozaar) 50 mg PO DAILY [facility] Last Admin: 09/16/17 08:05 Dose: 50 mg Magnesium Oxide (Mag-Ox) 400 mg PO BID [facility] Last Admin: 09/16/17 08:06 Dose: 400 mg Ondansetron HCl (Zofran Odt) 4 mg PO Q8H PRN PRN Reason: Nausea/Vomiting Last Admin: 09/06/17 23:30 Dose: 4 mg Sertraline HCl (Zoloft) 12.5 mg PO DAILY [facility] Last Admin: 09/16/17 08:08 Dose: 12.5 mg - Labs Labs: 09/16/17 05:25 09/16/17 05:25 PT 11.5 Seconds (9.8-13.1) 08/27/17 05:30 INR 1.0 (0.9-1.2) 08/27/17 05:30 APTT 31.6 Seconds (25.6-37.1) 08/27/17 05:30 - Constitutional Appears: No Acute Distress - Eye Exam Eye Exam: absent: Normal appearance (marked left supraorbital swelling) - ENT Exam ENT Exam: Mucous Membranes Moist - Neck Exam Neck Exam: absent: Meningismus - Respiratory Exam Respiratory Exam: absent: Rales, Rhonchi, Wheezes, Respiratory Distress - Cardiovascular Exam Cardiovascular Exam: REGULAR RHYTHM, +S1, +S2 - GI/Abdominal Exam GI & Abdominal Exam: Soft. absent: Tenderness - Rectal Exam Rectal Exam: Deferred - Neurological Exam Neurological Exam: Alert, Oriented x3 - Psychiatric Exam Psychiatric exam: Normal Affect - Skin Skin Exam: Dry, Intact Assessment and Plan - Assessment and Plan (Free Text) Assessment: 66 yo female with history of DM2 and HTN was admitted to [facility] [place] on 08/18/17 because of left sided weakness and dysarthria associated with acute CVA. While in there patient fell in the bathroom sustaining left supraorbital contussion- hematoma. She was also found to have UTI. On 08/26/17 she was transferred to [facility] and admitted in Acute Rehab for further therapy. 1. Acute CVA continue PT/OT on ASA and statin physiatry consult with Dr Couch 2. DM2 BS uncontrolled HgA1C: 7.7 on 08/18/17 in [facility] [place] accuchek ACHS with low Lispro coverage increase Levemir to 12 units SC HS 3. UTI resolved 4. HTN BP stable continue Losartan and Norvasc 5. Contussion-Hematoma, Left Supraorbital very slow to subside 6. DVT prophylaxis on Lovenox
--- NOTE | 2017-09-16 15:18 | CP.PCM.CON ---
History of Present Illness - History of Present Illness History of Present Illness: consult requested to clear pt for discharge pt is 66ys old female no previous psychiatric diagnosis or treatment, The patient was transferred from [facility] [place] [place] the [facility] for continued management and rehabilitation. She zo hx of DM, HTN who was admitted to the [facility] on 08/18/17 with left side weakness and dysarthria , diagnosed with Acute CVA. pt noted by staff to present with depressed mood, edginess and irritability, on evaluation pt reported feeling sad and angry due to her current medical condition, denied changes in sleep or appetite denied feeling hopeless or helpless denied suicidal ideation denid perceptual disturbances pt was placed on ZOLOFT , with good response on evaluation pt , groomed, reported mood fine , brighter affect, reported improved sleep and appetite , denied any current symptoms of depression, denied psychotic symptoms denied S/HI Past Patient History - Past Medical History & Family History Past Medical History?: Yes - Past Social History Smoking Status: Never Smoked Alcohol: None Drugs: Denies Home Situation {Lives}: With Family (few steps) - CARDIAC Hx Hypertension: Yes - PULMONARY Hx Respiratory Disorders: No - NEUROLOGICAL Hx Neurological Disorder: No - HEENT Hx HEENT Problems: No - RENAL Hx Chronic Kidney Disease: No - ENDOCRINE/METABOLIC Hx Diabetes Mellitus Type 2: Yes - HEMATOLOGICAL/ONCOLOGICAL Hx Blood Disorders: No - INTEGUMENTARY Hx Dermatological Problems: No - MUSCULOSKELETAL/RHEUMATOLOGICAL Hx Falls: Yes - GASTROINTESTINAL Hx Gastrointestinal Disorders: No Other/Comment: Diverticulosis - GENITOURINARY/GYNECOLOGICAL Hx Genitourinary Disorders: No - PSYCHIATRIC Hx Substance Use: No - SURGICAL HISTORY Hx Surgeries: Yes Hx Appendectomy: Yes Hx Cataract Extraction: Yes Hx Section: Yes (X3) Hx Hysterectomy: Yes - ANESTHESIA Hx Anesthesia: Yes Hx Anesthesia Reactions: No Hx Malignant Hyperthermia: No Meds Allergies/Adverse Reactions: Allergies Allergy/AdvReac Type Severity Reaction Status Date / Time No Known Allergies Allergy Verified 08/26/17 20:09 - Medications Medications: Current Medications Amantadine HCl (Amantadine 100 Mg Cap) 100 mg PO DAILY [facility] Stop: 09/19/17 20:00 Last Admin: 09/16/17 08:05 Dose: 100 mg Amlodipine Besylate (Norvasc) 10 mg PO DAILY [facility] Last Admin: 09/16/17 08:11 Dose: 10 mg Aspirin (Ecotrin) 81 mg PO DAILY [facility] Last Admin: 09/16/17 08:06 Dose: 81 mg Atorvastatin Calcium (Lipitor) 80 mg PO HS [facility] Last Admin: 09/15/17 22:01 Dose: 80 mg Famotidine (Pepcid) 20 mg PO DAILY [facility] Last Admin: 09/16/17 08:05 Dose: 20 mg Insulin Detemir (Levemir) 10 units SC Q12 [facility] Last Admin: 09/16/17 08:06 Dose: 10 units Insulin Human Lispro (Humalog) 0 units SC ACHS [facility] PRN Reason: Protocol Last Admin: 09/16/17 11:30 Dose: 3 units Losartan Potassium (Cozaar) 50 mg PO DAILY [facility] Last Admin: 09/16/17 08:05 Dose: 50 mg Magnesium Oxide (Mag-Ox) 400 mg PO BID [facility] Last Admin: 09/16/17 08:06 Dose: 400 mg Ondansetron HCl (Zofran Odt) 4 mg PO Q8H PRN PRN Reason: Nausea/Vomiting Last Admin: 09/06/17 23:30 Dose: 4 mg Sertraline HCl (Zoloft) 12.5 mg PO DAILY [facility] Last Admin: 09/16/17 08:08 Dose: 12.5 mg Physical Exam - Psychiatric Exam Additional comments: pt cooperative reported mood fine affect bright thought form coherent , alert awake denied any current suicidal or homicidal ideation, denied perceptual disturbance Results - Vital Signs Recent Vital Signs: Last Vital Signs Temp 97.5 F L 09/16/17 08:31 Pulse 74 09/16/17 08:31 Resp 20 09/16/17 08:31 BP 124/58 L 09/16/17 08:31 Pulse Ox 98 09/16/17 08:31 - Labs Result Diagrams: 09/16/17 05:25 09/16/17 05:25 Labs: Laboratory Results - last 24 hr 09/15/17 09/15/17 09/15/17 06:27 11:06 16:03 WBC RBC Hgb Hct MCV MCH MCHC RDW Plt Count Sodium Potassium Chloride Carbon Dioxide Anion Gap BUN Creatinine Est GFR ( Amer) Est GFR (Non-Af Amer) POC Glucose (mg/dL) 179 H 252 H 189 H Random Glucose Calcium 09/15/17 09/16/17 09/16/17 20:46 05:25 05:25 WBC 6.9 RBC 4.44 Hgb 12.4 Hct 36.4 MCV 82.1 MCH 27.9 MCHC 33.9 RDW 13.4 Plt Count 289 Sodium 140 Potassium 4.1 Chloride 101 Carbon Dioxide 27 Anion Gap 16 BUN 18 H Creatinine 0.6 L Est GFR ( Amer) > 60 Est GFR (Non-Af Amer) > 60 POC Glucose (mg/dL) 202 H Random Glucose 186 H Calcium 9.6 09/16/17 09/16/17 06:47 11:42 WBC RBC Hgb Hct MCV MCH MCHC RDW Plt Count Sodium Potassium Chloride Carbon Dioxide Anion Gap BUN Creatinine Est GFR ( Amer) Est GFR (Non-Af Amer) POC Glucose (mg/dL) 183 H 208 H Random Glucose Calcium Assessment & Plan - Assessment and Plan (Free Text) Assessment: 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
[2017-09-17] MEDS: Insulin Lispro (humaLOG) 100 Units/ml Inj SC SCH ×4 (07:41→21:04)
[2017-09-17] MEDS: Magnesium Oxide 400 mg Tab UD PO SCH ×2 (08:01→17:20)
[2017-09-17] MEDS: Insulin Detemir 100 Units/ml Inj SC SCH ×2 (08:02→21:38)
[2017-09-18] MEDS: Insulin Lispro (humaLOG) 100 Units/ml Inj SC SCH ×4 (06:55→21:00)
[2017-09-18] MEDS: Magnesium Oxide 400 mg Tab UD PO SCH ×2 (08:15→16:27)
[2017-09-18] MEDS: Insulin Detemir 100 Units/ml Inj SC SCH ×2 (08:17→21:29)
--- NOTE | 2017-09-18 19:10 | CP.PCM.PN ---
Subjective - Date & Time of Evaluation Date of Evaluation: 09/16/17 Time of Evaluation: 13:00 - Subjective Subjective: no acute complaints at present Objective - Vital Signs/Intake and Output Vital Signs (last 24 hours): Temp Pulse Resp BP Pulse Ox 96.9 F L 75 18 126/57 L 97 09/18/17 10:00 09/18/17 10:00 09/18/17 10:00 09/18/17 10:00 09/18/17 10:00 - Medications Medications: Current Medications Amantadine HCl (Amantadine 100 Mg Cap) 100 mg PO DAILY [facility] Stop: 09/19/17 20:00 Last Admin: 09/18/17 08:15 Dose: 100 mg Amlodipine Besylate (Norvasc) 10 mg PO DAILY [facility] Last Admin: 09/18/17 08:15 Dose: 10 mg Aspirin (Ecotrin) 81 mg PO DAILY [facility] Last Admin: 09/18/17 08:15 Dose: 81 mg Atorvastatin Calcium (Lipitor) 80 mg PO HS [facility] Last Admin: 09/17/17 21:36 Dose: 80 mg Famotidine (Pepcid) 20 mg PO DAILY [facility] Last Admin: 09/18/17 08:15 Dose: 20 mg Insulin Detemir (Levemir) 10 units SC Q12 [facility] Last Admin: 09/18/17 08:17 Dose: 10 units Insulin Human Lispro (Humalog) 0 units SC ACHS [facility] PRN Reason: Protocol Last Admin: 09/18/17 16:33 Dose: 2 units Losartan Potassium (Cozaar) 50 mg PO DAILY [facility] Last Admin: 09/18/17 08:16 Dose: 50 mg Magnesium Oxide (Mag-Ox) 400 mg PO BID [facility] Last Admin: 09/18/17 16:27 Dose: 400 mg Ondansetron HCl (Zofran Odt) 4 mg PO Q8H PRN PRN Reason: Nausea/Vomiting Last Admin: 09/06/17 23:30 Dose: 4 mg Sertraline HCl (Zoloft) 12.5 mg PO DAILY [facility] Last Admin: 09/18/17 08:15 Dose: 12.5 mg - Labs Labs: 09/16/17 05:25 09/16/17 05:25 PT 11.5 Seconds (9.8-13.1) 08/27/17 05:30 INR 1.0 (0.9-1.2) 08/27/17 05:30 APTT 31.6 Seconds (25.6-37.1) 08/27/17 05:30 - Head Exam Head Exam: ATRAUMATIC, NORMAL INSPECTION, NORMOCEPHALIC - Eye Exam Eye Exam: EOMI, Normal appearance Pupil Exam: NORMAL ACCOMODATION, PERRL - ENT Exam ENT Exam: Mucous Membranes Moist, Normal Exam - Neck Exam Neck Exam: Full ROM, Normal Inspection - Respiratory Exam Respiratory Exam: Clear to Ausculation Bilateral, NORMAL BREATHING PATTERN - Cardiovascular Exam Cardiovascular Exam: REGULAR RHYTHM - GI/Abdominal Exam GI & Abdominal Exam: Soft, Normal Bowel Sounds - Rectal Exam Rectal Exam: NORMAL INSPECTION - Exam External exam: NORMAL EXTERNAL EXAM - Extremities Exam Extremities Exam: Full ROM, Normal Capillary Refill, Normal Inspection - Back Exam Back Exam: NORMAL INSPECTION - Neurological Exam Neurological Exam: Alert, Awake Neuro motor strength exam: Left Upper Extremity: 3, Right Upper Extremity: 3, Left Lower Extremity: 3, Right Lower Extremity: 3 - Psychiatric Exam Psychiatric exam: Normal Affect, Normal Mood - Skin Skin Exam: Dry, Normal Color Assessment and Plan (1) Ischemic stroke Assessment & Plan: plan for physical, occupational therapy rec and speech therapy Status: Acute
--- NOTE | 2017-09-18 19:13 | CP.PCM.PN ---
Subjective - Date & Time of Evaluation Date of Evaluation: 09/15/17 Time of Evaluation: 20:00 - Subjective Subjective: no acute complaints noted Objective - Vital Signs/Intake and Output Vital Signs (last 24 hours): Temp Pulse Resp BP Pulse Ox 96.9 F L 75 18 126/57 L 97 09/18/17 10:00 09/18/17 10:00 09/18/17 10:00 09/18/17 10:00 09/18/17 10:00 - Medications Medications: Current Medications Amantadine HCl (Amantadine 100 Mg Cap) 100 mg PO DAILY [facility] Stop: 09/19/17 20:00 Last Admin: 09/18/17 08:15 Dose: 100 mg Amlodipine Besylate (Norvasc) 10 mg PO DAILY [facility] Last Admin: 09/18/17 08:15 Dose: 10 mg Aspirin (Ecotrin) 81 mg PO DAILY [facility] Last Admin: 09/18/17 08:15 Dose: 81 mg Atorvastatin Calcium (Lipitor) 80 mg PO HS [facility] Last Admin: 09/17/17 21:36 Dose: 80 mg Famotidine (Pepcid) 20 mg PO DAILY [facility] Last Admin: 09/18/17 08:15 Dose: 20 mg Insulin Detemir (Levemir) 10 units SC Q12 [facility] Last Admin: 09/18/17 08:17 Dose: 10 units Insulin Human Lispro (Humalog) 0 units SC ACHS [facility] PRN Reason: Protocol Last Admin: 09/18/17 16:33 Dose: 2 units Losartan Potassium (Cozaar) 50 mg PO DAILY [facility] Last Admin: 09/18/17 08:16 Dose: 50 mg Magnesium Oxide (Mag-Ox) 400 mg PO BID [facility] Last Admin: 09/18/17 16:27 Dose: 400 mg Ondansetron HCl (Zofran Odt) 4 mg PO Q8H PRN PRN Reason: Nausea/Vomiting Last Admin: 09/06/17 23:30 Dose: 4 mg Sertraline HCl (Zoloft) 12.5 mg PO DAILY [facility] Last Admin: 09/18/17 08:15 Dose: 12.5 mg - Labs Labs: 09/16/17 05:25 09/16/17 05:25 PT 11.5 Seconds (9.8-13.1) 08/27/17 05:30 INR 1.0 (0.9-1.2) 08/27/17 05:30 APTT 31.6 Seconds (25.6-37.1) 08/27/17 05:30 - Head Exam Head Exam: ATRAUMATIC, NORMAL INSPECTION, NORMOCEPHALIC - Eye Exam Eye Exam: EOMI, Normal appearance Pupil Exam: NORMAL ACCOMODATION, PERRL - ENT Exam ENT Exam: Mucous Membranes Moist, Normal Exam - Neck Exam Neck Exam: Full ROM, Normal Inspection - Respiratory Exam Respiratory Exam: Clear to Ausculation Bilateral, NORMAL BREATHING PATTERN - Cardiovascular Exam Cardiovascular Exam: REGULAR RHYTHM - GI/Abdominal Exam GI & Abdominal Exam: Soft, Normal Bowel Sounds - Rectal Exam Rectal Exam: NORMAL INSPECTION - Exam External exam: NORMAL EXTERNAL EXAM - Extremities Exam Extremities Exam: Full ROM, Normal Capillary Refill, Normal Inspection - Back Exam Back Exam: NORMAL INSPECTION - Neurological Exam Neurological Exam: Alert, Awake Neuro motor strength exam: Left Upper Extremity: 3, Right Upper Extremity: 3, Left Lower Extremity: 3, Right Lower Extremity: 3 - Psychiatric Exam Psychiatric exam: Normal Affect, Normal Mood - Skin Skin Exam: Dry, Normal Color Assessment and Plan (1) Ischemic stroke Assessment & Plan: plan for range of motion, strengthening, transfers and gait training Status: Acute
[2017-09-19] MEDS: Insulin Lispro (humaLOG) 100 Units/ml Inj SC SCH ×2 (06:59→13:18)
[2017-09-19 08:45] VITALS: BP 125/59; PULSE 62; RESP 22; TEMP 97.9; O2SAT 98
[2017-09-19] MEDS: Insulin Detemir 100 Units/ml Inj SC SCH (09:10)
[2017-09-19] MEDS: Magnesium Oxide 400 mg Tab UD PO SCH (09:11)
--- NOTE | 2017-09-19 11:39 | CP.PCM.PN ---
Subjective - Date & Time of Evaluation Date of Evaluation: 09/19/17 Time of Evaluation: 11:39 - Subjective Subjective: Ms. Kim was seen and examined at the bedside. She is alert, oriented in all spheres. She is all ready to go home. She denies any blurred vision, dizziness , lightheadedness. She is able to follow simple commands with the left side weaker than the right, attempts to do a passive exercise by herself, and assist during her ADL. She is able to minimally flex and extend her left hand. She can also move her upper extremity in a vertical position until the shoulder level, participates actively during her therapy session. There was no untoward events overnight Objective - Vital Signs/Intake and Output Vital Signs (last 24 hours): Temp Pulse Resp BP Pulse Ox 97.9 F 62 22 125/59 L 98 09/19/17 08:44 09/19/17 09:11 09/19/17 08:44 09/19/17 09:11 09/19/17 08:44 - Medications Medications: Current Medications Amantadine HCl (Amantadine 100 Mg Cap) 100 mg PO DAILY [facility] Stop: 09/19/17 20:00 Last Admin: 09/19/17 09:10 Dose: 100 mg Amlodipine Besylate (Norvasc) 10 mg PO DAILY [facility] Last Admin: 09/19/17 09:11 Dose: 10 mg Aspirin (Ecotrin) 81 mg PO DAILY [facility] Last Admin: 09/19/17 09:09 Dose: 81 mg Atorvastatin Calcium (Lipitor) 80 mg PO HS [facility] Last Admin: 09/18/17 21:30 Dose: 80 mg Famotidine (Pepcid) 20 mg PO DAILY [facility] Last Admin: 09/19/17 09:10 Dose: 20 mg Insulin Detemir (Levemir) 10 units SC Q12 [facility] Last Admin: 09/19/17 09:10 Dose: 10 units Insulin Human Lispro (Humalog) 0 units SC ACHS [facility] PRN Reason: Protocol Last Admin: 09/19/17 06:59 Dose: 3 units Losartan Potassium (Cozaar) 50 mg PO DAILY [facility] Last Admin: 09/19/17 09:09 Dose: 50 mg Magnesium Oxide (Mag-Ox) 400 mg PO BID [facility] Last Admin: 09/19/17 09:11 Dose: 400 mg Ondansetron HCl (Zofran Odt) 4 mg PO Q8H PRN PRN Reason: Nausea/Vomiting Last Admin: 09/06/17 23:30 Dose: 4 mg Sertraline HCl (Zoloft) 12.5 mg PO DAILY [facility] Last Admin: 09/19/17 09:11 Dose: 12.5 mg - Labs Labs: 09/16/17 05:25 09/16/17 05:25 PT 11.5 Seconds (9.8-13.1) 08/27/17 05:30 INR 1.0 (0.9-1.2) 08/27/17 05:30 APTT 31.6 Seconds (25.6-37.1) 08/27/17 05:30 - Constitutional Appears: No Acute Distress - Head Exam Head Exam: NORMAL INSPECTION - Eye Exam Pupil Exam: PERRL - Neurological Exam Neurological Exam: Alert, Awake, Oriented x3 Neuro motor strength exam: Left Upper Extremity: 2/1, Right Upper Extremity: 5, Left Lower Extremity: 2/1, Right Lower Extremity: 5 Additional comments: neurological unchanged from previous examination. Assessment and Plan (1) Ischemic stroke Assessment & Plan: Continue all current medical, physical, occupational, and speech therapies. Recommend follow up with an outpatient neurologist in 3 weeks post discharge ( either Dr. Salguero/ Delfin at [address] [place] [address] [place] [id number]) tel. [phone], hydration, keeping the head of bed elevated at least 30 degrees while in the bed. Status: Acute
--- NOTE | 2017-09-19 16:14 | CP.PCM.DIS ---
Provider - Provider Date of Admission: 08/26/17 20:11 Attending physician: Wagner Cota Primary care physician: KATHLEEND: Nino Nieves Consults: Dr. Salguero- neurology Dr. Couch- physiatry Dr. Ram- psychology Time Spent in preparation of Discharge (in minutes): 25 Hospital Course - Lab Results Lab Results: Most Recent Lab Values WBC 6.9 K/uL (4.8-10.8) 09/16/17 05:25 RBC 4.44 Mil/uL (3.80-5.20) 09/16/17 05:25 Hgb 12.4 g/dL (12.0-16.0) 09/16/17 05:25 Hct 36.4 % (34.0-47.0) 09/16/17 05:25 MCV 82.1 fl (81.0-99.0) 09/16/17 05:25 MCH 27.9 pg (27.0-31.0) 09/16/17 05:25 MCHC 33.9 g/dL (33.0-37.0) 09/16/17 05:25 RDW 13.4 % (11.5-14.5) 09/16/17 05:25 Plt Count 289 K/uL (130-400) 09/16/17 05:25 MPV 7.4 fl (7.2-11.7) 08/27/17 05:30 Neut % (Auto) 48.2 % (50.0-75.0) L 08/27/17 05:30 Lymph % (Auto) 30.9 % (20.0-40.0) 08/27/17 05:30 [place] % (Auto) 13.9 % (0.0-10.0) H 08/27/17 05:30 Eos % (Auto) 6.4 % (0.0-4.0) H 08/27/17 05:30 Baso % (Auto) 0.6 % (0.0-2.0) 08/27/17 05:30 Neut # (Auto) 4.6 K/uL (1.8-7.0) 08/27/17 05:30 Lymph # (Auto) 3.0 K/uL (1.0-4.3) 08/27/17 05:30 [place]aton # (Auto) 1.3 K/uL (0.0-0.8) H 08/27/17 05:30 Eos # (Auto) 0.6 K/uL (0.0-0.7) 08/27/17 05:30 Baso # (Auto) 0.1 K/uL (0.0-0.2) 08/27/17 05:30 PT 11.5 Seconds (9.8-13.1) 08/27/17 05:30 INR 1.0 (0.9-1.2) 08/27/17 05:30 APTT 31.6 Seconds (25.6-37.1) 08/27/17 05:30 Sodium 140 mmol/l (132-148) 09/16/17 05:25 Potassium 4.1 MMOL/L (3.6-5.0) 09/16/17 05:25 Chloride 101 mmol/L (98-107) 09/16/17 05:25 Carbon Dioxide 27 mmol/L (22-30) 09/16/17 05:25 Anion Gap 16 (10-20) 09/16/17 05:25 BUN 18 mg/dl (7-17) H 09/16/17 05:25 Creatinine 0.6 mg/dl (0.7-1.2) L 09/16/17 05:25 Est GFR ( Amer) > 60 09/16/17 05:25 Est GFR (Non-Af Amer) > 60 09/16/17 05:25 POC Glucose (mg/dL) 219 mg/dL (65-110) H 09/19/17 12:08 Random Glucose 186 mg/dL (65-105) H 09/16/17 05:25 Calcium 9.6 mg/dL (8.4-10.2) 09/16/17 05:25 Total Bilirubin 0.9 mg/dl (0.2-1.3) 08/27/17 05:30 AST 41 U/L (14-36) H 08/27/17 05:30 ALT 70 U/L (9-52) H 08/27/17 05:30 Alkaline Phosphatase 88 U/L (38-126) 08/27/17 05:30 Total Protein 7.6 G/DL (6.3-8.2) 08/27/17 05:30 Albumin 4.0 g/dL (3.5-5.0) 08/27/17 05:30 Globulin 3.6 gm/dL (2.2-3.9) 08/27/17 05:30 Albumin/Globulin Ratio 1.1 (1.0-2.1) 08/27/17 05:30 Urine Color Straw (YELLOW) 08/30/17 17:37 Urine Clarity Clear (Clear) 08/30/17 17:37 Urine pH 6.0 (5.0-8.0) 08/30/17 17:37 Ur Specific [place] 1.010 (1.003-1.030) 08/30/17 17:37 Urine Protein Negative mg/dL (NEGATIVE) 08/30/17 17:37 Urine Glucose (UA) >=500 mg/dL (Normal) 08/30/17 17:37 Urine Ketones Negative mg/dL (NEGATIVE) 08/30/17 17:37 Urine Blood Negative (NEGATIVE) 08/30/17 17:37 Urine Nitrate Negative (NEGATIVE) 08/30/17 17:37 Urine Bilirubin Negative (NEGATIVE) 08/30/17 17:37 Urine Urobilinogen 0.2-1.0 mg/dL (0.2-1.0) 08/30/17 17:37 Ur Leukocyte Esterase Trace Paolo/uL (Negative) 08/30/17 17:37 Urine RBC (Auto) 2 /hpf (0-3) 08/30/17 17:37 Urine Microscopic WBC 2 /hpf (0-5) 08/30/17 17:37 Ur Squamous Epith Cells < 1 /hpf (0-5) 08/30/17 17:37 Urine Bacteria Rare (<OCC) 08/30/17 17:37 - Hospital Course Hospital Course: This is a 66 yo female with history of DM2 and HTN was [place] [facility] [place] because of left sided weakness and dysarthria associated with acute CVA. While in there patient fell in the bathroom sustaining left supraorbital contussion-hematoma. She was also found to have UTI. On 08/26/17 she was transferred to [facility] and admitted in Acute Rehab for further therapy. 1. Acute CVA PT/OT on ASA and statin physiatry consult with Dr Couch 2. DM2 HgA1C: 7.7 on 08/18/17 [place] [facility] [place] with Levemir 10 units SC q 12 hours Patient should be f/u closely as outpatient Statin 3. UTI resolved 4. HTN BP stable continue Losartan and Norvasc 5. Contussion-Hematoma, Left Supraorbital very slow to subside 6. DVT prophylaxis Received Lovenox during her stay in rehab Discharge Exam - Head Exam Head Exam: NORMAL INSPECTION - Additional Findings Additional findings: Physical exam: Constitutional- cooperative, awake, alert Head- NCAT, PERRL Eye- PERRL, EOMI ENT- normal exam, MMM. Neck- normal inspection, supple, no JVD Respiratory- CTAB, no wheezes rales rhonchi Cardiovascular- RRR, +S1, +S2 no MRG GI/Abdominal- normal bowel sounds, soft, no mass, no hsm Skin- warm, dry Extremities Exam- normal capillary refill, normal inspection Neurological Exam- alert, awake, oriented Psych- normal mood, normal affect Discharge Plan - Discharge Medications Prescriptions: Amantadine [Amantadine 100 mg Cap] 100 mg PO DAILY #30 cap amLODIPine [Norvasc] 10 mg PO DAILY #30 tab Aspirin [Ecotrin] 81 mg PO DAILY #30 tabec Atorvastatin [Lipitor] 80 mg PO HS #30 tab Famotidine [Pepcid] 20 mg PO DAILY #30 tab Insulin Detemir [Levemir] 10 unit SC Q12H 30 Days #1 vial Losartan [Cozaar] 50 mg PO DAILY #30 tab Magnesium Oxide [Mag-Ox] 400 mg PO BID #60 tab Sertraline [Zoloft] 12.5 mg PO DAILY #30 tab - Follow Up Plan Condition: GOOD Disposition: HOME/ ROUTINE Instructions: High Blood Pressure in Adults, Stroke (DC), Diabetes Type 2 (DC)
== END 2017-09-19 14:29 | disposition home or self-care (01) | DRG 57 ==
PROVIDERS: ADMIT Internal Medicine; ATTEND Internal Medicine
PROC: F07M6FZ Therapeutic Exercise Treatment of Musculoskeletal System - Whole Body using Assistive, Adaptive, Supportive or Protective Equipment (ICD-10-PCS; principal; 2017-08-26)
PROC: F08Z4FZ Home Management Treatment using Assistive, Adaptive, Supportive or Protective Equipment (ICD-10-PCS; 2017-08-26)
PROC: F07Z9FZ Gait Training/Functional Ambulation Treatment using Assistive, Adaptive, Supportive or Protective Equipment (ICD-10-PCS; 2017-08-26)
PROC: F06Z6ZZ Communicative/Cognitive Integration Skills Treatment (ICD-10-PCS; 2017-08-26)
DX: I69.354 Hemiplegia and hemiparesis following cerebral infarction affecting left non-dominant side (principal); N39.0 Urinary tract infection, site not specified; E11.9 Type 2 diabetes mellitus without complications; I69.322 Dysarthria following cerebral infarction; F06.30 Mood disorder due to known physiological condition, unspecified; F32.9 Major depressive disorder, single episode, unspecified; I10 Essential (primary) hypertension; K57.90 Diverticulosis of intestine, part unspecified, without perforation or abscess without bleeding; W19.XXXD Unspecified fall, subsequent encounter; Y92.231 Patient bathroom in hospital as the place of occurrence of the external cause; Z79.4 Long term (current) use of insulin; Z90.49 Acquired absence of other specified parts of digestive tract; Z90.710 Acquired absence of both cervix and uterus; Z86.010 Personal history of colon polyps; S05.12XD Contusion of eyeball and orbital tissues, left eye, subsequent encounter